=== PATIENT | male | born 1950 | race Two or more races ===

== ENCOUNTER → 2023-12-16 | Outpatient (CLI) | payer MEDICARE, MEDICAID, SELFPAY ==
[2023-12-16 08:30] LABS: Basophils % (Auto) 1 % (0-2.5); Eosinophils # (Auto) 0.1 Thou/mm3 (0.0-0.5); Eosinophils % (Auto) 2 % (0-10); Hematocrit 50.2 % (41.0-53.0); Immature Granulocytes % (Auto) 0 % (0-0); Immature Granulocytes Auto 0.02 Thou/mm3 (0.00-0.00); Lymphocytes # (Auto) 1.5 Thou/mm3 (1.0-4.8); Lymphocytes % (Auto) 26 % (10-50); Mean Corpuscular HGB Conc 29.9 g/dl (31.0-37.0); Mean Corpuscular Volume 84 fL (80-100); Monocytes # (Auto) 0.7 Thou/mm3 (0.0-0.8); Monocytes % (Auto) 12 % (0-12); Neutrophils # (Auto) 3.5 Thou/mm3 (1.8-7.7); Neutrophils % (Auto) 59 % (37-80); Nucleated Red Blood Cell % 0 /100 WBC (0); Platelet Count 234 Thou/mm3 (140-440); RDW Standard Deviation 45.1 fL (35.1-43.9); White Blood Count 5.8 Thou/mm3 (3.8-10.6)
[2023-12-16 08:52] LABS: Alanine Aminotransferase 29 U/L (10-49); Albumin, Serum 5.2 gm/dL (3.4-4.8); Albumin/Globulin Ratio 2.3 (1.2-2.2); Alkaline Phosphatase 115 U/L (46-116); Anion Gap 8 (7-16); Aspartate Amino Transferase 21 U/L (0-34); BUN/Creatinine Ratio 18 Ratio (12-20); Bilirubin,Total 0.5 mg/dL (0.3-1.2); Blood Urea Nitrogen 24 mg/dL (9-23); Calcium 10.5 mg/dL (8.3-10.6); Calcium (Corrected) 10.5 mg/dL (8.5-10.1); Chloride 105 mMol/L (98-107); Creatinine (Component) 1.3 mg/dL (0.6-1.3); Globulin 2.3 gm/dL (2.3-3.5); Glucose 137 mg/dL (74-106); Osmolality,Calculated 283 (275-295); Potassium 4.7 mMol/L (3.4-5.1); Sodium 139 mMol/L (136-145); Total Protein 7.5 gm/dL (5.7-8.2); eGFR 59 See Note
[2023-12-16 08:57] LABS: Folate 13.89 ng/mL (>5.38); Vitamin B12 613 pg/mL (211-911)
[2023-12-24 06:33] LABS: Testosterone,Total* 399 ng/dL (250-1100)
== END | disposition home or self-care (01) ==
LOC: SCTO 06:40
PROVIDERS: Referring Provider Nurse Practitioner Family; Visit Provider Nurse Practitioner Family
DX: D75.1 Secondary polycythemia (principal)
CPT/HCPCS: 36415; 80053; 82607; 82668; 82728; 82746; 83540; 83550; 84403; 85025

== ENCOUNTER 2023-12-17 13:45 | Outpatient (RCR) | payer MEDICARE, MEDICAID, SELFPAY | END 2024-01-11 23:59 | disposition home or self-care (01) | LOC: SCTC 13:45 | PROVIDERS: PCP Family Medicine; Referring Provider Family Medicine; Visit Provider Internal Medicine Hematology & Oncology | DX: D75.1 Secondary polycythemia (principal); Z94.0 Kidney transplant status | CPT/HCPCS: 99195 ==

== ENCOUNTER → 2024-01-06 | Outpatient (CLI) | payer MEDICARE, MEDICAID, SELFPAY ==
[2024-01-06 14:00] LABS: Basophils % (Auto) 1 % (0-2.5); Eosinophils % (Auto) 1 % (0-10); Hematocrit 42.9 % (41.0-53.0); Immature Granulocytes % (Auto) 1 % (0-0); Immature Granulocytes Auto 0.03 Thou/mm3 (0.00-0.00); Lymphocytes # (Auto) 0.9 Thou/mm3 (1.0-4.8); Lymphocytes % (Auto) 15 % (10-50); Mean Corpuscular HGB Conc 30.3 g/dl (31.0-37.0); Mean Corpuscular Hemoglobin 24.1 pg (25.0-35.0); Mean Corpuscular Volume 80 fL (80-100); Monocytes # (Auto) 0.6 Thou/mm3 (0.0-0.8); Monocytes % (Auto) 10 % (0-12); Neutrophils # (Auto) 4.5 Thou/mm3 (1.8-7.7); Neutrophils % (Auto) 74 % (37-80); Nucleated Red Blood Cell % 0 /100 WBC (0); Platelet Count 241 Thou/mm3 (140-440); RDW Standard Deviation 42.9 fL (35.1-43.9); Red Blood Count 5.39 Miln/mm3 (4.50-5.90); White Blood Count 6.1 Thou/mm3 (3.8-10.6)
[2024-01-06 14:14] LABS: Alanine Aminotransferase 26 U/L (10-49); Albumin, Serum 4.6 gm/dL (3.4-4.8); Albumin/Globulin Ratio 2.3 (1.2-2.2); Alkaline Phosphatase 97 U/L (46-116); Anion Gap 10 (7-16); Aspartate Amino Transferase 26 U/L (0-34); BUN/Creatinine Ratio 19 Ratio (12-20); Bilirubin,Total 0.7 mg/dL (0.3-1.2); Blood Urea Nitrogen 25 mg/dL (9-23); Calcium 9.9 mg/dL (8.3-10.6); Calcium (Corrected) 9.9 mg/dL (8.5-10.1); Carbon Dioxide 23.3 mMol/L (20.0-31.0); Chloride 105 mMol/L (98-107); Creatinine (Component) 1.3 mg/dL (0.6-1.3); Glucose 217 mg/dL (74-106); Osmolality,Calculated 287 (275-295); Potassium 4.2 mMol/L (3.4-5.1); Sodium 138 mMol/L (136-145); Total Protein 6.6 gm/dL (5.7-8.2); eGFR 59 See Note
== END | disposition home or self-care (01) ==
LOC: SCTO 12:52
PROVIDERS: PCP Family Medicine; Referring Provider Nurse Practitioner Family; Visit Provider Nurse Practitioner Family
DX: D75.1 Secondary polycythemia (principal)
CPT/HCPCS: 36415; 80053; 85025

== ENCOUNTER → 2024-01-13 | Outpatient (CLI) | payer MEDICARE, MEDICAID, SELFPAY ==
[2024-01-13 07:48] LABS: Collection Type, Urine Clean Catch; Squamous Epithelial Cell,Urine 0 /hpf (0-5)
[2024-01-13 08:28] LABS: Basophils % (Auto) 1 % (0-2.5); Eosinophils # (Auto) 0.2 Thou/mm3 (0.0-0.5); Eosinophils % (Auto) 3 % (0-10); Hemoglobin 13.7 g/dL (13.5-16.0); Immature Granulocytes % (Auto) 1 % (0-0); Immature Granulocytes Auto 0.05 Thou/mm3 (0.00-0.00); Lymphocytes # (Auto) 1.5 Thou/mm3 (1.0-4.8); Lymphocytes % (Auto) 27 % (10-50); Mean Corpuscular HGB Conc 29.1 g/dl (31.0-37.0); Mean Corpuscular Hemoglobin 23.6 pg (25.0-35.0); Mean Corpuscular Volume 81 fL (80-100); Monocytes # (Auto) 0.7 Thou/mm3 (0.0-0.8); Monocytes % (Auto) 13 % (0-12); Neutrophils # (Auto) 3.1 Thou/mm3 (1.8-7.7); Neutrophils % (Auto) 56 % (37-80); Nucleated Red Blood Cell % 0 /100 WBC (0); Platelet Count 248 Thou/mm3 (140-440); RDW Standard Deviation 43.8 fL (35.1-43.9); White Blood Count 5.5 Thou/mm3 (3.8-10.6)
[2024-01-13 08:35] LABS: Bilirubin,Urine Negative (Negative); Blood,Urine Negative (Negative); Clarity,Urine Clear (Clear/Hazy); Color,Urine Lt-Yellow (Lt Yel-Yel); Glucose, Urine 4+ (Negative); Ketones,Urine Negative (Negative); Leukocyte Esterase,Urine Negative (Negative); Nitrite,Urine Negative (Negative); Protein,Urine Trace (Neg - Trace); RBC,Urine 1 /hpf (0-3); Specific Gravity,Urine 1.023 (1.001-1.035); Urobilinogen,Urine Negative mg/dL (0.0-1.0); WBC,Urine < 1 /hpf (0-5)
[2024-01-13 08:51] LABS: Alanine Aminotransferase 19 U/L (10-49); Albumin/Globulin Ratio 2.6 (1.2-2.2); Alkaline Phosphatase 118 U/L (46-116); Anion Gap 11 (7-16); Aspartate Amino Transferase 21 U/L (0-34); BUN/Creatinine Ratio 19 Ratio (12-20); Bilirubin,Direct 0.1 mg/dL (0.0-0.3); Bilirubin,Total 0.5 mg/dL (0.3-1.2); Blood Urea Nitrogen 25 mg/dL (9-23); Calcium 10.1 mg/dL (8.3-10.6); Calcium (Corrected) 10.1 mg/dL (8.5-10.1); Carbon Dioxide 24.3 mMol/L (20.0-31.0); Cardiac Risk Estimate 2.9 RATIO (4.0-6.7); Chloride 104 mMol/L (98-107); Cholesterol 180 mg/dL (132-200); Creatinine (Component) 1.3 mg/dL (0.6-1.3); Globulin 1.9 gm/dL (2.3-3.5); Glucose 140 mg/dL (74-106); HDL Cholesterol 63 mg/dL (40-60); LDL Cholesterol,Calculated 85 mg/dL (0-130); Osmolality,Calculated 283 (275-295); Phosphorous 3.7 mg/dL (2.4-5.1); Potassium 4.8 mMol/L (3.4-5.1); Sodium 139 mMol/L (136-145); Total Protein 6.9 gm/dL (5.7-8.2); Triglycerides 162 mg/dL (30-150); eGFR 59 See Note
[2024-01-13 09:19] LABS: Glucose Estimated Average 212 mg/dL (80-131)
[2024-01-20 06:56] LABS: Tacrolimus,highly sensitive* 7.5 mcg/L (5.0-20.0)
== END | disposition home or self-care (01) ==
LOC: COPL 06:39
PROVIDERS: PCP Nurse Practitioner Family; Referring Provider Nurse Practitioner Family; Visit Provider Internal Medicine Nephrology
DX: E78.5 Hyperlipidemia, unspecified (principal); E11.9 Type 2 diabetes mellitus without complications; Z94.0 Kidney transplant status; D75.1 Secondary polycythemia
CPT/HCPCS: 36415; 80053; 80061; 80197; 81001; 82248; 83036; 84100; 85025

== ENCOUNTER 2024-01-21 15:41 | Outpatient (RCR) | payer MEDICARE, MEDICAID, SELFPAY | END 2024-02-11 23:59 | disposition home or self-care (01) | LOC: SCTC 15:41 | PROVIDERS: PCP Nurse Practitioner Family; Referring Provider Nurse Practitioner Family; Visit Provider Internal Medicine Hematology & Oncology | DX: D75.1 Secondary polycythemia (principal); Z94.0 Kidney transplant status | CPT/HCPCS: 99212; G0463 ==

== ENCOUNTER → 2024-02-14 | Outpatient (CLI) | payer MEDICARE, MEDICAID, SELFPAY ==
[2024-02-14 08:27] LABS: Collection Type, Urine Clean Catch; Squamous Epithelial Cell,Urine 0 /hpf (0-5)
[2024-02-14 08:51] LABS: Basophils % (Auto) 1 % (0-2.5); Eosinophils # (Auto) 0.1 Thou/mm3 (0.0-0.5); Eosinophils % (Auto) 3 % (0-10); Hematocrit 46.6 % (41.0-53.0); Hemoglobin 13.6 g/dL (13.5-16.0); Immature Granulocytes % (Auto) 1 % (0-0); Immature Granulocytes Auto 0.03 Thou/mm3 (0.00-0.00); Lymphocytes # (Auto) 1.6 Thou/mm3 (1.0-4.8); Lymphocytes % (Auto) 27 % (10-50); Mean Corpuscular HGB Conc 29.2 g/dl (31.0-37.0); Mean Corpuscular Hemoglobin 23.2 pg (25.0-35.0); Mean Corpuscular Volume 80 fL (80-100); Monocytes # (Auto) 0.8 Thou/mm3 (0.0-0.8); Monocytes % (Auto) 14 % (0-12); Neutrophils # (Auto) 3.2 Thou/mm3 (1.8-7.7); Neutrophils % (Auto) 55 % (37-80); Nucleated Red Blood Cell % 0 /100 WBC (0); Platelet Count 196 Thou/mm3 (140-440); RDW Standard Deviation 46.9 fL (35.1-43.9); Red Blood Count 5.86 Miln/mm3 (4.50-5.90); White Blood Count 5.7 Thou/mm3 (3.8-10.6)
[2024-02-14 09:03] LABS: Alanine Aminotransferase 20 U/L (10-49); Albumin, Serum 4.7 gm/dL (3.4-4.8); Albumin/Globulin Ratio 2.4 (1.2-2.2); Alkaline Phosphatase 86 U/L (46-116); Anion Gap 9 (7-16); Aspartate Amino Transferase 18 U/L (0-34); BUN/Creatinine Ratio 20 Ratio (12-20); Bilirubin,Total 0.5 mg/dL (0.3-1.2); Blood Urea Nitrogen 24 mg/dL (9-23); Calcium 9.7 mg/dL (8.3-10.6); Calcium (Corrected) 9.7 mg/dL (8.5-10.1); Carbon Dioxide 26.7 mMol/L (20.0-31.0); Chloride 107 mMol/L (98-107); Creatinine (Component) 1.2 mg/dL (0.6-1.3); Glucose 123 mg/dL (74-106); Magnesium 1.7 mg/dL (1.6-2.6); Osmolality,Calculated 289 (275-295); Phosphorous 4.1 mg/dL (2.4-5.1); Potassium 4.2 mMol/L (3.4-5.1); Sodium 143 mMol/L (136-145); Total Protein 6.7 gm/dL (5.7-8.2); eGFR > 60 See Note
[2024-02-14 10:30] LABS: Bilirubin,Urine Negative (Negative); Blood,Urine Negative (Negative); Clarity,Urine Clear (Clear/Hazy); Color,Urine Lt-Yellow (Lt Yel-Yel); Culture Indicated,Urine Not Indicated; Glucose, Urine 4+ (Negative); Ketones,Urine Negative (Negative); Leukocyte Esterase,Urine Negative (Negative); Nitrite,Urine Negative (Negative); Protein,Urine Trace (Neg - Trace); RBC,Urine 1 /hpf (0-3); Specific Gravity,Urine 1.032 (1.001-1.035); Urobilinogen,Urine Negative mg/dL (0.0-1.0); WBC,Urine < 1 /hpf (0-5)
[2024-02-14 10:43] LABS: Creatinine,Random Urine 110 mg/dL (30-125); Protein Total, Random Urine 34 mg/dL (1-14)
[2024-02-18 07:03] LABS: BK Virus DNA,QN PCR,Urine 45948 copies/mL
[2024-02-19 07:08] LABS: BK Virus DNA,QN PCR,Urine 4.66 Log cps/mL
[2024-02-20 06:26] LABS: CMV Antibody (IgM) <30.00 AU/mL; Tacrolimus,highly sensitive* 8.7 mcg/L (5.0-20.0)
== END | disposition home or self-care (01) ==
LOC: COPL 06:41
PROVIDERS: PCP Nurse Practitioner Family; Referring Provider Specialist; Visit Provider Specialist
DX: Z94.0 Kidney transplant status (principal); B25.9 Cytomegaloviral disease, unspecified; E83.42 Hypomagnesemia; E83.39 Other disorders of phosphorus metabolism; R80.9 Proteinuria, unspecified; N39.0 Urinary tract infection, site not specified
CPT/HCPCS: 36415; 80053; 80197; 81001; 82570; 83735; 84100; 84156; 85025; 86644; 86645; 87799

== ENCOUNTER → 2024-03-03 | Outpatient (CLI) | payer MEDICARE, MEDICAID, SELFPAY ==
[2024-03-03 07:48] LABS: Collection Type, Urine Clean Catch; Squamous Epithelial Cell,Urine 0 /hpf (0-5)
[2024-03-03 08:55] LABS: Basophils % (Auto) 1 % (0-2.5); Eosinophils # (Auto) 0.1 Thou/mm3 (0.0-0.5); Eosinophils % (Auto) 1 % (0-10); Hematocrit 45.9 % (41.0-53.0); Hemoglobin 13.9 g/dL (13.5-16.0); Immature Granulocytes % (Auto) 1 % (0-0); Immature Granulocytes Auto 0.07 Thou/mm3 (0.00-0.00); Lymphocytes # (Auto) 1.4 Thou/mm3 (1.0-4.8); Lymphocytes % (Auto) 23 % (10-50); Mean Corpuscular HGB Conc 30.3 g/dl (31.0-37.0); Mean Corpuscular Hemoglobin 23.9 pg (25.0-35.0); Mean Corpuscular Volume 79 fL (80-100); Monocytes # (Auto) 0.8 Thou/mm3 (0.0-0.8); Monocytes % (Auto) 12 % (0-12); Neutrophils # (Auto) 3.9 Thou/mm3 (1.8-7.7); Neutrophils % (Auto) 62 % (37-80); Nucleated Red Blood Cell % 0 /100 WBC (0); Platelet Count 209 Thou/mm3 (140-440); RDW Standard Deviation 48.4 fL (35.1-43.9); Red Blood Count 5.82 Miln/mm3 (4.50-5.90); White Blood Count 6.3 Thou/mm3 (3.8-10.6)
[2024-03-03 08:57] LABS: Glucose Estimated Average 240 mg/dL (80-131)
[2024-03-03 09:00] LABS: Creatinine MALB Rnd Ur 57 mg/dL (30-125); Microalbumin Creat Ratio 44 mg/gCrea (<30); Microalbumin, Random Urine 25 mg/L (0-300)
[2024-03-03 09:15] LABS: Alanine Aminotransferase 18 U/L (10-49); Albumin, Serum 4.8 gm/dL (3.4-4.8); Albumin/Globulin Ratio 2.2 (1.2-2.2); Alkaline Phosphatase 109 U/L (46-116); Anion Gap 10 (7-16); Aspartate Amino Transferase 13 U/L (0-34); BUN/Creatinine Ratio 26 Ratio (12-20); Bilirubin,Total 0.5 mg/dL (0.3-1.2); Blood Urea Nitrogen 36 mg/dL (9-23); Calcium 9.7 mg/dL (8.3-10.6); Calcium (Corrected) 9.7 mg/dL (8.5-10.1); Carbon Dioxide 25.5 mMol/L (20.0-31.0); Chloride 106 mMol/L (98-107); Creatinine (Component) 1.4 mg/dL (0.6-1.3); Globulin 2.2 gm/dL (2.3-3.5); Glucose 204 mg/dL (74-106); Magnesium 1.6 mg/dL (1.6-2.6); Osmolality,Calculated 295 (275-295); Phosphorous 3.8 mg/dL (2.4-5.1); Potassium 4.4 mMol/L (3.4-5.1); Sodium 141 mMol/L (136-145); eGFR 53 See Note
[2024-03-03 09:16] LABS: Bilirubin,Urine Negative (Negative); Blood,Urine Negative (Negative); Clarity,Urine Clear (Clear/Hazy); Color,Urine Colorless (Lt Yel-Yel); Culture Indicated,Urine Not Indicated; Glucose, Urine 4+ (Negative); Ketones,Urine Negative (Negative); Leukocyte Esterase,Urine Negative (Negative); Nitrite,Urine Negative (Negative); Protein,Urine Trace (Neg - Trace); RBC,Urine 5 /hpf (0-3); Specific Gravity,Urine 1.031 (1.001-1.035); Urobilinogen,Urine Negative mg/dL (0.0-1.0); WBC,Urine < 1 /hpf (0-5)
[2024-03-05 23:34] LABS: BK Virus DNA,QN PCR,Urine 78362 copies/mL
[2024-03-06 07:00] LABS: BK Virus DNA,QN PCR,Urine 4.89 Log cps/mL
[2024-03-08 19:51] LABS: BKQL Source PLASMA; CMV DNA, Qn Real Time PCR NOT DETECTED; CMV Specimen Source NOT GIVEN
[2024-03-09 06:52] LABS: BK Virus DNA, Qnt PCR <2.70 DETECTED Log cps/mL; BK Virus DNA, Qnt PCR <500 DETECTED copies/mL; CMV DNA, Qn PCR NOT DETECTED Log IU/mL; Tacrolimus,highly sensitive* 5.5 mcg/L (5.0-20.0)
== END | disposition home or self-care (01) ==
LOC: COPL 06:48
PROVIDERS: PCP Internal Medicine Nephrology; Referring Provider Specialist; Visit Provider Specialist
DX: Z94.0 Kidney transplant status (principal); E83.42 Hypomagnesemia; B25.9 Cytomegaloviral disease, unspecified; E83.39 Other disorders of phosphorus metabolism; R80.9 Proteinuria, unspecified; N39.0 Urinary tract infection, site not specified; E11.9 Type 2 diabetes mellitus without complications
CPT/HCPCS: 36415; 80053; 80197; 81001; 82043; 82570; 83036; 83735; 84100; 85025; 87497; 87799

== ENCOUNTER → 2024-03-25 | Outpatient (CLI) | payer MEDICARE, MEDICAID, SELFPAY ==
[2024-03-25 15:47] LABS: Basophils % (Auto) 0 % (0-2.5); Eosinophils % (Auto) 0 % (0-10); Hematocrit 44.5 % (41.0-53.0); Hemoglobin 13.4 g/dL (13.5-16.0); Immature Granulocytes % (Auto) 1 % (0-0); Immature Granulocytes Auto 0.04 Thou/mm3 (0.00-0.00); Lymphocytes # (Auto) 0.9 Thou/mm3 (1.0-4.8); Lymphocytes % (Auto) 10 % (10-50); Mean Corpuscular HGB Conc 30.1 g/dl (31.0-37.0); Mean Corpuscular Hemoglobin 23.8 pg (25.0-35.0); Mean Corpuscular Volume 79 fL (80-100); Monocytes # (Auto) 0.5 Thou/mm3 (0.0-0.8); Monocytes % (Auto) 7 % (0-12); Neutrophils # (Auto) 6.7 Thou/mm3 (1.8-7.7); Neutrophils % (Auto) 82 % (37-80); Nucleated Red Blood Cell % 0 /100 WBC (0); Platelet Count 176 Thou/mm3 (140-440); RDW Standard Deviation 49.6 fL (35.1-43.9); Red Blood Count 5.64 Miln/mm3 (4.50-5.90); White Blood Count 8.2 Thou/mm3 (3.8-10.6)
[2024-03-25 16:02] LABS: Alanine Aminotransferase 25 U/L (10-49); Albumin, Serum 4.4 gm/dL (3.4-4.8); Albumin/Globulin Ratio 2.1 (1.2-2.2); Alkaline Phosphatase 99 U/L (46-116); Anion Gap 7 (7-16); Aspartate Amino Transferase 19 U/L (0-34); BUN/Creatinine Ratio 22 Ratio (12-20); Bilirubin,Total 0.5 mg/dL (0.3-1.2); Blood Urea Nitrogen 28 mg/dL (9-23); Carbon Dioxide 25.6 mMol/L (20.0-31.0); Chloride 104 mMol/L (98-107); Creatinine (Component) 1.3 mg/dL (0.6-1.3); Globulin 2.1 gm/dL (2.3-3.5); Glucose 399 mg/dL (74-106); Osmolality,Calculated 296 (275-295); Potassium 4.7 mMol/L (3.4-5.1); Sodium 137 mMol/L (136-145); Total Protein 6.5 gm/dL (5.7-8.2); eGFR 58 See Note
== END | disposition home or self-care (01) ==
LOC: SCTO 14:05
PROVIDERS: PCP Nurse Practitioner Family; Referring Provider Nurse Practitioner Family; Visit Provider Nurse Practitioner Family
DX: D75.1 Secondary polycythemia (principal)
CPT/HCPCS: 36415; 80053; 85025

== ENCOUNTER → 2024-05-05 | Outpatient (CLI) | payer MEDICARE, MEDICAID, SELFPAY ==
[2024-05-05 08:24] LABS: Collection Type, Urine Clean Catch
[2024-05-05 08:48] LABS: Basophils % (Auto) 1 % (0-2.5); Eosinophils # (Auto) 0.1 Thou/mm3 (0.0-0.5); Eosinophils % (Auto) 2 % (0-10); Hematocrit 45.7 % (41.0-53.0); Hemoglobin 13.8 g/dL (13.5-16.0); Immature Granulocytes % (Auto) 1 % (0-0); Immature Granulocytes Auto 0.03 Thou/mm3 (0.00-0.00); Lymphocytes # (Auto) 1.4 Thou/mm3 (1.0-4.8); Lymphocytes % (Auto) 25 % (10-50); Mean Corpuscular HGB Conc 30.2 g/dl (31.0-37.0); Mean Corpuscular Hemoglobin 23.9 pg (25.0-35.0); Mean Corpuscular Volume 79 fL (80-100); Monocytes # (Auto) 0.8 Thou/mm3 (0.0-0.8); Monocytes % (Auto) 14 % (0-12); Neutrophils # (Auto) 3.1 Thou/mm3 (1.8-7.7); Neutrophils % (Auto) 57 % (37-80); Nucleated Red Blood Cell % 0 /100 WBC (0); Platelet Count 169 Thou/mm3 (140-440); Red Blood Count 5.78 Miln/mm3 (4.50-5.90); White Blood Count 5.5 Thou/mm3 (3.8-10.6)
[2024-05-05 09:00] LABS: Bilirubin,Urine Negative (Negative); Blood,Urine Negative (Negative); Clarity,Urine Clear (Clear/Hazy); Color,Urine Colorless (Lt Yel-Yel); Culture Indicated,Urine Not Indicated; Glucose, Urine 4+ (Negative); Ketones,Urine Negative (Negative); Leukocyte Esterase,Urine Negative (Negative); Nitrite,Urine Negative (Negative); PH,Urine 6.5 (5.0-7.0); Protein,Urine Trace (Neg - Trace); RBC,Urine < 1 /hpf (0-3); Specific Gravity,Urine 1.013 (1.001-1.035); Squamous Epithelial Cell,Urine < 1 /hpf (0-5); Urobilinogen,Urine Negative mg/dL (0.0-1.0); WBC,Urine < 1 /hpf (0-5)
[2024-05-05 09:07] LABS: Albumin, Serum 4.6 gm/dL (3.4-4.8); Anion Gap 9 (7-16); BUN/Creatinine Ratio 23 Ratio (12-20); Blood Urea Nitrogen 30 mg/dL (9-23); Calcium 9.5 mg/dL (8.3-10.6); Calcium (Corrected) 9.5 mg/dL (8.5-10.1); Carbon Dioxide 24.7 mMol/L (20.0-31.0); Chloride 108 mMol/L (98-107); Creatinine (Component) 1.3 mg/dL (0.6-1.3); Glucose 107 mg/dL (74-106); Osmolality,Calculated 289 (275-295); Phosphorous 3.1 mg/dL (2.4-5.1); Potassium 4.3 mMol/L (3.4-5.1); Sodium 142 mMol/L (136-145); eGFR 58 See Note
[2024-05-05 09:09] LABS: Sperm,Urine Present
[2024-05-13 06:40] LABS: Tacrolimus,highly sensitive* 3.8 mcg/L (5.0-20.0)
== END | disposition home or self-care (01) ==
PROVIDERS: PCP Nurse Practitioner Family; Referring Provider Internal Medicine Nephrology; Visit Provider Internal Medicine Nephrology
DX: I10 Essential (primary) hypertension (principal); E11.9 Type 2 diabetes mellitus without complications; Z94.0 Kidney transplant status
CPT/HCPCS: 36415; 80069; 80197; 81001; 85025

== ENCOUNTER → 2024-05-21 | Outpatient (CLI) | payer MEDICARE, MEDICAID, SELFPAY ==
[2024-05-21 11:55] LABS: Misc Send Out* See Sep Rpt
[2024-05-21 12:19] LABS: Basophils % (Auto) 1 % (0-2.5); Eosinophils # (Auto) 0.1 Thou/mm3 (0.0-0.5); Eosinophils % (Auto) 1 % (0-10); Hematocrit 47.8 % (41.0-53.0); Hemoglobin 14.3 g/dL (13.5-16.0); Immature Granulocytes % (Auto) 2 % (0-0); Immature Granulocytes Auto 0.12 Thou/mm3 (0.00-0.00); Lymphocytes # (Auto) 1.3 Thou/mm3 (1.0-4.8); Lymphocytes % (Auto) 18 % (10-50); Mean Corpuscular HGB Conc 29.9 g/dl (31.0-37.0); Mean Corpuscular Hemoglobin 24.1 pg (25.0-35.0); Mean Corpuscular Volume 81 fL (80-100); Monocytes # (Auto) 0.6 Thou/mm3 (0.0-0.8); Monocytes % (Auto) 8 % (0-12); Neutrophils % (Auto) 71 % (37-80); Nucleated Red Blood Cell % 0 /100 WBC (0); Platelet Count 193 Thou/mm3 (140-440); Red Blood Count 5.93 Miln/mm3 (4.50-5.90)
[2024-05-21 12:47] LABS: Alanine Aminotransferase 38 U/L (10-49); Albumin, Serum 4.7 gm/dL (3.4-4.8); Albumin/Globulin Ratio 2.1 (1.2-2.2); Alkaline Phosphatase 86 U/L (46-116); Anion Gap 8 (7-16); Aspartate Amino Transferase 23 U/L (0-34); BUN/Creatinine Ratio 23 Ratio (12-20); Bilirubin,Total 0.6 mg/dL (0.3-1.2); Blood Urea Nitrogen 30 mg/dL (9-23); Calcium 9.9 mg/dL (8.3-10.6); Calcium (Corrected) 9.9 mg/dL (8.5-10.1); Carbon Dioxide 24.5 mMol/L (20.0-31.0); Chloride 110 mMol/L (98-107); Creatinine (Component) 1.3 mg/dL (0.6-1.3); Globulin 2.2 gm/dL (2.3-3.5); Glucose 202 mg/dL (74-106); Osmolality,Calculated 295 (275-295); Potassium 5.2 mMol/L (3.4-5.1); Sodium 142 mMol/L (136-145); Total Protein 6.9 gm/dL (5.7-8.2); eGFR 58 See Note
[2024-05-26 06:35] LABS: Erythropoietin (EPO)* 11.7 mIU/mL (2.6-18.5); Testosterone,Total* 446 ng/dL (250-1100)
== END | disposition home or self-care (01) ==
LOC: SCTO 11:37
PROVIDERS: PCP Nurse Practitioner Family; Referring Provider Nurse Practitioner Family; Visit Provider Nurse Practitioner Family
DX: D75.1 Secondary polycythemia (principal)
CPT/HCPCS: 36415; 80053; 82668; 84403; 85025

== ENCOUNTER 2024-06-02 11:13 | Outpatient (RCR) | payer MEDICARE, MEDICAID, SELFPAY | END 2024-06-10 23:59 | disposition home or self-care (01) | LOC: SCTC 11:13 | PROVIDERS: PCP Nurse Practitioner Family; Referring Provider Nurse Practitioner Family; Visit Provider Nurse Practitioner Family | DX: D75.1 Secondary polycythemia (principal) | CPT/HCPCS: 99212; G0463 ==

== ENCOUNTER → 2024-07-20 | Outpatient (CLI) | payer MEDICARE, MEDICAID, SELFPAY ==
[2024-07-20 07:59] LABS: Collection Type, Urine Clean Catch; WBC,Urine 0 /hpf (0-5)
[2024-07-20 08:34] LABS: Alanine Aminotransferase 18 U/L (10-49); Albumin, Serum 4.6 gm/dL (3.4-4.8); Alkaline Phosphatase 87 U/L (46-116); Anion Gap 13 (7-16); BUN/Creatinine Ratio 15 Ratio (12-20); Bilirubin,Direct 0.2 mg/dL (0.0-0.3); Bilirubin,Total 0.5 mg/dL (0.3-1.2); Blood Urea Nitrogen 18 mg/dL (9-23); Calcium 9.2 mg/dL (8.3-10.6); Carbon Dioxide 25.6 mMol/L (20.0-31.0); Cardiac Risk Estimate 2.9 RATIO (4.0-6.7); Chloride 106 mMol/L (98-107); Cholesterol 163 mg/dL (132-200); Creatinine (Component) 1.2 mg/dL (0.6-1.3); Glucose 134 mg/dL (74-106); HDL Cholesterol 57 mg/dL (40-60); LDL Cholesterol,Calculated 81 mg/dL (0-130); Osmolality,Calculated 292 (275-295); Potassium 4.1 mMol/L (3.4-5.1); Sodium 145 mMol/L (136-145); Total Protein 6.6 gm/dL (5.7-8.2); Triglycerides 126 mg/dL (30-150); eGFR > 60 See Note
[2024-07-20 08:38] LABS: Basophils % (Auto) 1 % (0-2.5); Eosinophils # (Auto) 0.1 Thou/mm3 (0.0-0.5); Eosinophils % (Auto) 1 % (0-10); Hematocrit 45.9 % (41.0-53.0); Hemoglobin 14.5 g/dL (13.5-16.0); Immature Granulocytes % (Auto) 1 % (0-0); Immature Granulocytes Auto 0.09 Thou/mm3 (0.00-0.00); Lymphocytes # (Auto) 1.4 Thou/mm3 (1.0-4.8); Lymphocytes % (Auto) 23 % (10-50); Mean Corpuscular HGB Conc 31.6 g/dl (31.0-37.0); Mean Corpuscular Hemoglobin 25.3 pg (25.0-35.0); Mean Corpuscular Volume 80 fL (80-100); Monocytes # (Auto) 0.8 Thou/mm3 (0.0-0.8); Monocytes % (Auto) 12 % (0-12); Neutrophils # (Auto) 3.9 Thou/mm3 (1.8-7.7); Neutrophils % (Auto) 62 % (37-80); Nucleated Red Blood Cell % 0 /100 WBC (0); Platelet Count 184 Thou/mm3 (140-440); RDW Standard Deviation 44.2 fL (35.1-43.9); Red Blood Count 5.72 Miln/mm3 (4.50-5.90); White Blood Count 6.3 Thou/mm3 (3.8-10.6)
[2024-07-20 08:55] LABS: Glucose Estimated Average 269 mg/dL (80-131)
[2024-07-20 09:03] LABS: Bilirubin,Urine Negative (Negative); Blood,Urine Negative (Negative); Clarity,Urine Clear (Clear/Hazy); Color,Urine Colorless (Lt Yel-Yel); Glucose, Urine 4+ (Negative); Ketones,Urine Negative (Negative); Leukocyte Esterase,Urine Negative (Negative); Nitrite,Urine Negative (Negative); Protein,Urine Trace (Neg - Trace); RBC,Urine 6 /hpf (0-3); Squamous Epithelial Cell,Urine < 1 /hpf (0-5); Urobilinogen,Urine Negative mg/dL (0.0-1.0)
[2024-07-24 06:58] LABS: Tacrolimus,highly sensitive* 8.2 mcg/L (5.0-20.0)
== END | disposition home or self-care (01) ==
LOC: COPL 06:39
PROVIDERS: PCP Nurse Practitioner Family; Referring Provider Internal Medicine Nephrology; Visit Provider Internal Medicine Nephrology
DX: Z94.0 Kidney transplant status (principal); E11.22 Type 2 diabetes mellitus with diabetic chronic kidney disease; I12.9 Hypertensive chronic kidney disease with stage 1 through stage 4 chronic kidney disease, or unspecified chronic kidney disease; N18.9 Chronic kidney disease, unspecified; E78.00 Pure hypercholesterolemia, unspecified; K76.9 Liver disease, unspecified
CPT/HCPCS: 36415; 80048; 80061; 80076; 80197; 81001; 83036; 84100; 85025

== ENCOUNTER 2024-08-23 14:25 | Inpatient (IN) | payer MEDICARE, MEDICAID, SELFPAY ==
[2024-08-23] VITALS (7 sets, daily range): BP systolic 147–171; BP diastolic 37–70; PULSE 58–63; RESP 16–21; TEMP 36.3–36.8; O2SAT 92–97; BMI 27.0; BMI 26.2; BMI 25.7
--- NOTE | 2024-08-23 14:27 | PD.EDNEURO ---
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 State coworkers on scene noted at around 13:30 hours, the patient became altered. State on their arrival patient initially was AOx1 and improved to AOx2 en route. Prehospital BS 243. While in the ED, patient complains of headache, left arm numbness, and nausea. At 15:00 I obtained further history from the patient. States he he was talking to family outside when he developed right facial numbness and left arm numbness. Described feeling his left arm wasn't mine . Accompanied by headache, blurred vision, and nausea. Reportedly since the brain tumor resection in 2005, he has recurrent headaches and forgetfulness. States the left arm numbness is new today. Related Data Home Medications ?Medication ?Instructions ?Recorded ?Confirmed aspirin 81 mg chewable tablet 81 mg PO QDAY 01/28/19 08/29/23 clopidogrel 75 mg tablet (Plavix) 75 mg PO QDAY 01/28/19 07/31/22 mycophenolate sodium 180 mg 540 mg PO Q12H 01/28/19 08/29/23 tablet,delayed release (Myfortic) tacrolimus 0.5 mg capsule, 0.5 mg PO BID 07/13/20 08/29/23 immediate-release tacrolimus 1 mg capsule, 3 mg PO BID 07/14/20 08/29/23 immediate-release prednisone 1 mg tablet 5 mg PO QDAY 08/01/22 08/29/23 atorvastatin 40 mg tablet 40 mg PO HS 08/03/22 08/29/23 dapagliflozin propanediol 10 mg 10 mg PO QAM 08/03/22 08/23/24 tablet (Farxiga) insulin glargine 100 15 unit subcut BID 08/03/22 08/03/22 unit-lixisenatide 33 mcg/mL subcutaneous pen (Soliqua 100/33) tamsulosin 0.4 mg capsule (Flomax) 0.4 mg PO HS 08/03/22 08/03/22 tramadol 50 mg tablet 50 mg PO Q6H PRN Pain 08/03/22 08/03/22 valsartan 40 mg tablet (Diovan) 40 mg PO DAILY 08/03/22 08/03/22 atorvastatin 20 mg tablet mg 08/29/23 dapagliflozin propanediol 10 mg 10 mg PO QAM 08/29/23 08/23/24 tablet ([facility]) dapagliflozin propanediol 10 mg mg 08/29/23 tablet ([facility]) glipizide 10 mg tablet mg 08/29/23 08/29/23 vitamin B complex-vitamin C-folic tab 08/29/23 acid 0.8 mg tablet (Jailyn-Rayshawn) vitamin B complex-vitamin C-folic tab 08/29/23 acid 0.8 mg tablet (Jailyn-Rayshawn) amlodipine 10 mg tablet 10 mg PO QDAY 08/23/24 08/23/24 propranolol 10 mg tablet 20 mg PO BID 08/23/24 08/23/24 Previous Rx's ?Medication ?Instructions ?Recorded doxycycline hyclate 100 mg capsule 100 mg PO BID #24 caps 08/04/22 hydrocodone 5 mg-acetaminophen 325 1 tab PO Q8H PRN pain #12 tabs 08/04/22 mg tablet Allergies Allergy/AdvReac Type Severity Reaction Status Date / Time No Known Allergies Allergy Verified 08/23/24 15:56 Review of Systems Review of Systems Systems Reviewed: All systems reviewed, normal except as documented Past Medical History Past Medical History NEUROLOGIC: Positive Neurological Disorders, Migraine and Head Trauma; Negative Seizures CARDIAC: Positive Cardiac Disorders, Hypercholesterolemia and Hypertension; Negative Congestive Heart Failure, Edema, Cellulitis or Varicose Veins RESPIRATORY: Negative Chronic Obstructive Pulmonary Disease (COPD) GASTROINTESTINAL: Negative Gastrointestinal Disorders or Hepatitis GENITOURINARY: Positive Genitourinary Disorders, Renal Disease and Dialysis MUSCULOSKELETAL: Positive Musculoskeletal Disorders and Arthritis ENT: Positive Head Trauma ENDOCRINE: Positive Endocrine Disorders and Diabetes Mellitus Type 2; Negative Diabetes Mellitus Type 1 HEMATOLOGIC: Negative Blood Disorders OTHER HISTORY: Positive Anesthesia Reactions (had shortness of breath after surgery), Organ Transplant and Chicken Pox; Negative Hospitalization, Autoimmune Disease, Shingles, Falls, Blood Transfusions, Blood Transfusion Reaction, Measles, Mumps, Clostridium Difficile or Cancer Family History FAMILY HISTORY: Positive Family Cardiac Disorders, Family Cancer and Family Surgery; Negative Family Psychiatric Problems, Family Respiratory Disorders, Family Gastrointestinal Problems or Family Anesthesia Reaction Surgical History SURGICAL: Positive Cardiac Surgery, Coronary Stent and Organ Transplant; Negative Pacemaker, Endocrine Surgery, Ear Surgery, Abdominal Surgery, Nephrectomy, Joint Replacement or Mastectomy Social History SMOKING STATUS: Never smoker ED Exam Narrative Physical exam: GENERAL APPEARANCE: Somewhat somnolent, arousable to voice, confused, oriented to self HEENT: Normocephalic, atraumatic; pupils equal, round, reactive to light; EOMI; mucous membranes pink, moist; oropharynx clear NECK: Supple LUNGS: CTABL; no wheezes, no rales, no rhonchi HEART: Regular rate, regular rhythm; normal S1, S2; no murmurs ABDOMEN: non distended; normal BS; soft, no tenderness, no guarding, no rebound; no masses, no organomegaly, no hernia BACK: no CVA tenderness EXTREMITIES: atraumatic; no edema NEUROLOGIC: Somewhat somnolent, arousable to voice, confused, oriented to self, sensory deficits to the left upper extremity, left side neglect PSYCHIATRIC: appropriate mood and affect SKIN: warm, dry, normal color; no rashes Repeat exam @ 15:00 hours. GENERAL APPEARANCE: alert and oriented x 4, well-developed, well-nourished, no acute distress HEENT: Normocephalic, atraumatic; pupils equal, round, reactive to light; EOMI; mucous membranes pink, moist; oropharynx clear NECK: Supple LUNGS: CTABL; no wheezes, no rales, no rhonchi HEART: Regular rate, regular rhythm; normal S1, S2; no murmurs ABDOMEN: non distended; normal BS; soft, no tenderness, no guarding, no rebound; no masses, no organomegaly, no hernia BACK: no CVA tenderness EXTREMITIES: atraumatic; no edema NEUROLOGIC: awake; alert and oriented x4; cranial nerves II-XII grossly intact; no focal sensory or motor deficits, no neglect PSYCHIATRIC: appropriate mood and affect SKIN: warm, dry, normal color; no rashes General Limitations: Present no limitations Course Course Course Narrative: 1423: Patient evaluated in ED ambulance bay, stroke alert activated. Quality Measures Suspected type of Stroke: Non Acute Last known well (date): 08/23/24 Last known well (time): 06:00 Tenecteplase given: Reason(s) TPA not given: Outside the time window not given stroke Orders Category Date Time Status Bedside Blood Glucose NOW Care 08/23/24 14:28 Active Advisor [facility] Co Founder NOW Care 08/23/24 14:28 Active Continuous Pulse Oximetry NOW Care 08/23/24 14:28 Completed EKG (ED ONLY) *Do not use* NOW Care 08/23/24 14:28 Completed In and Out Catheter NEEDED Care 08/23/24 14:28 Active Insert IV NOW Care 08/23/24 14:28 Active NIH Stroke Scale now Care 08/23/24 14:28 Active NPO NOW Care 08/23/24 14:28 Active Neuro Check Q15MIN Care 08/23/24 14:28 Active Nurse Swallow Screen x1 Care 08/23/24 14:28 Active Consult to Neurology / Tele-Neurology Routine Cons 08/23/24 14:[address] angio stroke protocol Stat Exams 08/23/24 14:[address] stroke protocol Stat Exams 08/23/24 14:28 Completed EKG (ED Only) Stat Exams 08/23/24 14:28 Draft Alcohol, Blood Medical Stat Lab 08/23/24 14:39 Completed B-Type Natriuretic Peptide Stat Lab 08/23/24 14:39 Completed CBC Stat Lab 08/23/24 14:39 Completed CK [Creatine Kinase] Stat Lab 08/23/24 14:39 Completed Comprehensive Metabolic Panel Stat Lab 08/23/24 14:39 Completed Drug Screen,Urine Stat Lab 08/23/24 15:30 Completed Lactate (Lactic Acid) Stat Lab 08/23/24 14:39 Completed Magnesium Stat Lab 08/23/24 14:39 Completed Partial Thromboplastin Time Stat Lab 08/23/24 14:39 Completed Prothrombin Time with INR Stat Lab 08/23/24 14:39 Completed Troponin I Stat Lab 08/23/24 14:39 Completed Urinalysis Stat Lab 08/23/24 15:30 Received VBG [Venous Blood Gas] Stat Lab 08/23/24 14:39 Completed Aspirin [Ecotrin] Med 08/23/24 14:59 Discontinued 81 mg PO X1 ONE Magnesium Sulfate 2 GM Ivpb [Magnesium Sulfate Ivpb] Med 08/23/24 15:57 Active 2 gm in 50 ml IV X1 Sodium Chloride 0.9% 1000 ml [Ns] 1,000 ml Med 08/23/24 14:28 Discontinued IV 999 mls/hr Sodium Chloride 0.9% 1000 ml [Ns] 1,000 ml Med 08/23/24 14:29 Discontinued IV 999 mls/hr Oxygen Delivery NOW RT 08/23/24 14:28 Active Vital Signs Vital signs: Vital Signs Pulse Rate 63 08/23/24 14:33 Pulse Oximetry (%) 92 L 08/23/24 14:33 Neuro Symptoms / Deficit MDM Narrative MDM Narrative:: Pam Hernandez am scribing for and in the presence of Dr. Cook. 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 ) Lab and/or radiology exams considered but not ordered:: None Interpretation Summary: Ordering Physician: Froilan Cook MD Date of Service: 08/23/24 Procedure(s): CT stroke protocol Accession Number(s): [id number] cc: Scar Cade MD; Froilan Cook MD~ Examination: CT brain head without contrast. 2-D sagittal coronal reconstructions Date and time of exam:August 23, 2024, 1437 hrs. Indications: Stroke alert, onset altered mental status focal neurologic deficit today. CTDI: vol (mGy):50.7 DLP: (mGycm):1062 Technique: Multiple CT axial sections of the brain have been obtained, 5 mm slice thickness. Contrast has not been administered. 2-D sagittal, coronal reconstructions have been obtained Low dose protocols were performed. One or more of the following dose reduction techniques were used; automated exposure control, adjustment of the mA and/or KV according to patient size, use of iterative reconstruction technique. Findings: No significant ventricular enlargement. Stable encephalomalacia right frontal lobe with adjacent craniotomy defect Intra-axial or extra-axial hemorrhage density is not seen. No mass effect or midline shift Basal cisterns are not remarkable. Fourth ventricle is midline. Cranial vault intact. Impression: Negative for acute hemorrhage, mass effect or midline shift Dictated By: Scar Cade MD Signed By: <Electronically signed by Scar Cade MD in OV> 08/23/24 1443 Ordering Physician: Froilan Cook MD Date of Service: 08/23/24 Procedure(s): CT angio stroke protocol Accession Number(s): [id number] cc: Scar Cade MD; Froilan Cook MD~ Examination: CTA carotids with intravenous contrast CTA brain, head with intravenous contrast. 2-D sagittal, coronal reconstructions. 3-D reconstructions. Exam date and time: August 23, 2024, 1449 hrs. Indications: Stroke alert, onset focal neurologic deficit today, altered mental status, headache CTDI: vol (mGy) 38.4. DLP: (mGycm) 493. Technique: Multiple CTA axial brain, head carotid images post intravenous contrast injection 75 cc, [id number]. 2-D sagittal, coronal reconstructions. 3-D reconstructions, 3-D post processing including vascular maximum intensity projection images. Low dose protocols were performed. One or more of the following dose reduction techniques were used; automated exposure control, adjustment of the mA and/or KV according to patient size, use of iterative reconstruction technique. Findings: No significant common carotid carotid bifurcation or internal carotid artery stenoses Dominant right vertebral artery in the neck, no critical vertebral artery stenoses Intracranial vertebral arteries basilar artery and posterior cerebral branches fill with no large vessel occlusions Moderately heavy calcification of the juxtasellar portions of the internal carotid arteries with no critical stenoses M1 segments middle cerebral arteries middle cerebral artery trifurcation vessels fill with no large vessel occlusions Anterior cerebral arteries fill with no large vessel occlusions. Impression: No significant neck arterial stenoses No cerebral large vessel arterial occlusions or thrombus Dictated By: Scar Cade MD Signed By: <Electronically signed by Scar Cade MD in OV> 08/23/24 1505 Medications / Prescriptions Medications or Prescriptions considered but not ordered:: None Medication administrations:: Medication Administration History Magnesium Sulfate (Magnesium Sulfate Ivpb) 2 gm in 50 mls @ 25 mls/hr IV X1 ONE Stop: 08/23/24 17:56 Last Admin: 08/23/24 16:18 Dose: 25 mls/hr Documented By: MM Discontinued Medications Aspirin (Aspirin Ec 81 Mg Tabec) 81 mg PO X1 ONE Stop: 08/23/24 15:00 Last Admin: 08/23/24 16:09 Dose: 81 mg Documented By: MM Sodium Chloride (Ns) 1,000 mls @ 999 mls/hr IV .Q1H1M ONE Stop: 08/23/24 15:28 Last Admin: 08/23/24 16:11 Dose: 999 mls/hr Documented By: MM Sodium Chloride (Ns) 1,000 mls @ 999 mls/hr IV .Q1H1M ONE Stop: 08/23/24 15:29 Last Admin: 08/23/24 16:18 Dose: 999 mls/hr Documented By: MM See above Consultations Consultation(s) initiated? (list below): Yes Consultation #1 (Physician, Specialty, Details): I spoke with jackson Garcia. Reports patient is not a TNK candidate. Time: 15:11 Diagnosis Neuro Differential Diagnosis: subarachnoid hemorrhage, cerebrovascular accident, transient cerebral ischemia and other (heat stroke ) Most likely diagnosis given after review of the tests above:: CVA Admission Indicated Admission indicated?: indicated Admission Request Was there a request for admission?: Yes Admission Attestation Admission request attestation: Discussed case with [] from Hospitalist service regarding admission. Discussed patients ED course, exam findings, labs, and radiology results. The Hospitalist [agrees,declines] to accept the patient for admission. Disposition Plan Disposition Plan: Admit Critical Care Time Critical Care Time Critical Care Time: Yes Total Critical Care Time (min.): 45 Attestation: The high probability of sudden, clinically significant deterioration in the patient's condition required the highest level of my preparedness to intervene urgently. The services I provided to this patient were to treat and/or prevent clinically significant deterioration. Services included the following: chart data review, reviewing nursing notes and/or old charts, documentation time, system consultant collaboration regarding findings and treatment options, medication orders and management, direct patient care, vital sign assessments and ordering, interpreting and reviewing diagnostic studies and lab tests. Aggregate critical care time includes only time during which I was engaged in work directly related to the patient's care, as described above, whether at bedside or elsewhere in the Emergency Department. It did not include time spent performing other reported procedures or the services of residents, students, nurses or physician assistants. Discharge Plan Plan Patient Disposition: Admit Acute Care w/in Hospital Prescriptions/Referrals Prescriptions/Med Rec: No Action clopidogrel [Plavix] 75 mg Tablet 75 mg PO QDAY aspirin 81 mg Tablet,Chewable 81 mg PO QDAY mycophenolate sodium [Myfortic] 180 mg Tablet,Delayed Release (Dr/Ec) 540 mg PO Q12H Rx Instructions: 3 pills in am, 3 pills in pm tacrolimus 0.5 mg Capsule 0.5 mg PO BID tacrolimus 1 mg Capsule 3 mg PO BID Rx Instructions: 3 pills in am, 3pills pm prednisone 1 mg Tablet 5 mg PO QDAY atorvastatin 40 mg Tablet 40 mg PO HS valsartan [Diovan] 40 mg Tablet 40 mg PO DAILY dapagliflozin propanediol [Farxiga] 10 mg Tablet 10 mg PO QAM Soliqua 100/33 100 unit-33 mcg/mL Insulin Pen 15 unit SUBCUT BID tamsulosin [Flomax] 0.4 mg Capsule 0.4 mg PO HS tramadol 50 mg Tablet 50 mg PO Q6H PRN (Reason: Pain) doxycycline hyclate 100 mg capsule 100 mg PO BID Qty: 24 0RF hydrocodone-acetaminophen 5-325 mg tablet 1 tab PO Q8H MDD 3 tabs PRN (Reason: pain) Qty: 12 0RF atorvastatin 20 mg tablet glipizide 10 mg Tablet amlodipine 5 mg Tablet 5 mg PO DAILY Jailyn-Rayshawn 0.8 mg Tablet Jailyn-Rayshawn 0.8 mg Tablet dapagliflozin propanediol [Farxiga] 10 mg Tablet 10 mg PO QAM dapagliflozin propanediol [Farxiga] 10 mg Tablet Problem List Clinical Impression: CVA (cerebral vascular accident) Patient/Caregiver Discharge Instructions Print Language: Dominican Stand Alone Forms: Jaida Award Info., Patient Portal Info Letter
--- NOTE | 2024-08-23 14:28 | EKG_ITS ---
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
--- NOTE | 2024-08-23 14:33 | PC.NURSE ---
pt bib by pb at 1425. Dr Cook saw patient and stated to be tested for possible stroke. Pt was altered and was transferred to CT with RN. Pt able to comprehend to name but not place or time.
--- NOTE | 2024-08-23 14:38 | PC.NURSE ---
Tele neuro MD on monitor talking to pt.
[2024-08-23 14:50] LABS: Base Excess, Venous -2 (-3-3); Basophils # (Auto) 0.0 Thou/mm3 (0.0-0.2); Basophils % (Auto) 0 % (0-2.5); Eosinophils # (Auto) 0.1 Thou/mm3 (0.0-0.5); Eosinophils % (Auto) 1 % (0-10); Hematocrit 42.9 % (41.0-53.0); Hemoglobin 13.6 g/dL (13.5-16.0); Immature Granulocytes Auto 0.06 Thou/mm3 (0.00-0.00); Lactate (Lactic Acid) 1.8 mMol/L (0.4-2.0); Lymphocytes # (Auto) 1.0 Thou/mm3 (1.0-4.8); Lymphocytes % (Auto) 12 % (10-50); Mean Corpuscular HGB Conc 31.7 g/dl (31.0-37.0); Mean Corpuscular Hemoglobin 25.1 pg (25.0-35.0); Mean Corpuscular Volume 79 fL (80-100); Monocytes # (Auto) 0.6 Thou/mm3 (0.0-0.8); Monocytes % (Auto) 7 % (0-12); Neutrophils # (Auto) 6.1 Thou/mm3 (1.8-7.7); Neutrophils % (Auto) 78 % (37-80); Nucleated Red Blood Cell # 0.00 Thou/mm3 (0.00-0.00); Nucleated Red Blood Cell % 0 /100 WBC (0); O2 Saturation, Venous 79 % (96-97); PCO2, Venous 39 mmHg (36-56); PO2, Venous 44 mmHg (15-58); Platelet Count 152 Thou/mm3 (140-440); RDW Standard Deviation 44.2 fL (35.1-43.9); Red Blood Count 5.41 Miln/mm3 (4.50-5.90); White Blood Count 7.8 Thou/mm3 (3.8-10.6); pH, Venous 7.38 (7.33-7.66)
--- NOTE | 2024-08-23 14:50 | PC.NURSE ---
pt was complaining of left arm numbness will monitor.
--- NOTE | 2024-08-23 14:50 | PC.NURSE ---
Dr. Porter called states CT of head read is Negative for Acute stroke, Dr. Cook made aware.
--- NOTE | 2024-08-23 15:04 | ESCONSULT_ITS ---
Tele Neuro Consultation Consultation Date 08/23/24 Consultation Narrative [facility] TeleNeurology Consult Services Patient Name: MILLY CHERRY Date of : 1950 Identification Number: Date of Service: 08/23/2024 14:28:09 Diagnosis: ? R41.82 - Altered mental status, unspecified ? Left sided numbness ? R51.9 - Headache, unspecified Impression: ? 74 yo Male, Singaporean-speaking , With history of hypertension, hyperlipidemia, diabetes mellitus, status post renal transplantation, history of brain tumor resection (unknown details) who apparently was working in the [place] today, had not eaten or drank all day. He was apparently noted to be with altered mentation, complained of headache and complained of bilateral hand pain and possibly left-sided hand numbness. Bedside multi operation forming machine setter was utilized for history and examination. Patient was awake, disoriented to his age or the correct month, difficulty naming objects correctly, somewhat perseverative but speech was clear otherwise. He seems to have diminished sensation of his left side and neglects his left side on examination. It is unknown if he has any residual deficits from his prior brain tumor resection. NIHSS = 5. CT head reveals no bleed or acute abnormalities. Postoperative craniotomy on the right with chronic right frontal encephalomalacia. We will proceed with stat CTA of head and neck, and involve STACY if there is LVO. Evaluate for possibility of acute CVA, also rule out other contributing factors including rule out heat related illness, Rule out unwitnessed seizure with postictal deficit or other etiology. Our recommendations are outlined below. Recommendations: ? Stroke/Telemetry Floor ? Neuro Checks (Q2) ? Bedside Swallow Eval ? DVT Prophylaxis ? IV Fluids, Normal Saline ? Head of Bed 30 Degrees ? Euglycemia and Avoid Hyperthermia (PRN Acetaminophen) ? Initiate or continue Aspirin 81 MG daily ? Antihypertensives PRN if Blood pressure is greater than 220/120 or there is a concern for End organ damage/contraindications for permissive HTN. If blood pressure is greater than 220/120 give labetalol PO or IV or Vasotec IV with a goal of 15% reduction in BP during the first 24 hours. ? Stroke risk factor modification ? Stroke education. ? Suggest MRI brain To evaluate for possibility of CVA.Seizure precautions ? Suggest EEG, rule out seizure Sign Out: ? Discussed with Emergency Department Provider Metrics: Last Known Well: 08/23/2024 06:30:00 Dispatch Time: 08/23/2024 14:28:09 Arrival Time: 08/23/2024 14:25:00 Initial Response Time: 08/23/2024 14:32:20 Symptoms: Altered mental status, headache, left arm numbness. Initial patient interaction: 08/23/2024 14:38:25 NIHSS Assessment Completed: 08/23/2024 14:45:07 Patient is not a candidate for Thrombolytic. Thrombolytic Medical Decision: 08/23/2024 14:45:08 Patient was not deemed candidate for Thrombolytic because of following reasons: LKW outside 4.[address] Head: CT head unremarkable for acute infarction or hemorrhage per Radiology: No bleed or acute abnormalities, stable encephalomalacia right frontal lobe with adjacent craniotomy defect Primary Provider Notified of Diagnostic Impression and Management Plan on: 08/23/2024 14:59:35 History of Present Illness: Patient is a 74 year old Male. Patient was brought by EMS for symptoms of Altered mental status, headache, left arm numbness. 74 yo Male, Singaporean-speaking , With history of hypertension, hyperlipidemia, diabetes mellitus, , CADstatus post renal transplantation, history of brain tumor resection (unknown details) who apparently was working in the [place] today, had not eaten or drank all day. He was apparently noted to be with altered mentation, complained of headache and complained of bilateral hand pain and possibly left-sided hand numbness. Past Medical History: ? Hypertension ? Diabetes Mellitus ? Hyperlipidemia ? Coronary Artery Disease ? Migraine Headaches Other PMH: History of brain tumor resection-details unclearHistory of right foot osteomyelitis, history of PAD, history of CHF, depression, History of cellulitis, History of NSTEMI Medications: No Anticoagulant use Antiplatelet use: Yes Aspirin 81 mg daily, Plavix 95 mg daily Reviewed EMR for current medications Other Medications Pertinent To Assessment Include: Definitive medication list not available but per chart:Amlodipine, atorvastatin., Farxiga, glipizide, mycophenolate, tacrolimus, valsartan, Prednisone Allergies: Reviewed,NKDA Social History: Smoking: No Family History: There is no family history of premature cerebrovascular disease pertinent to this consultation ROS : 14 Points Review of Systems was performed and was negative except mentioned in HPI. Past Surgical History: There Is No Surgical History Contributory To Today?s Visit There Is Surgical History of: Kidney transplant patient , Craniotomy for brain tumor resection? , history of right partial foot amputation, Coronary stent Examination: BP(174/65), Pulse(67), Blood Glucose(243) 1A: Level of Consciousness - Alert; keenly responsive + 0 1B: Ask Month and Age - Could Not Answer Either Question Correctly + 2 1C: Blink Eyes & Squeeze Hands - Performs Both Tasks + 0 2: Test Horizontal Extraocular Movements - Normal + 0 3: Test Visual [place] - No Visual Loss + 0 4: Test Facial Palsy (Use Grimace if Obtunded) - Normal symmetry + 0 5A: Test Left Arm Motor Drift - No Drift for 10 Seconds + 0 5B: Test Right Arm Motor Drift - No Drift for 10 Seconds + 0 6A: Test Left Leg Motor Drift - No Drift for 5 Seconds + 0 6B: Test Right Leg Motor Drift - No Drift for 5 Seconds + 0 7: Test Limb Ataxia (FNF/Heel-Hawkins) - No Ataxia + 0 8: Test Sensation - Complete Loss: Cannot Sense Being Touched At All + 2 9: Test Language/Aphasia - Normal; No aphasia + 0 10: Test Dysarthria - Normal + 0 11: Test Extinction/Inattention - Visual/tactile/auditory/spatial/personal inattention + 1 NIHSS Score: 5 Pre-Morbid Modified Danitza Scale: Unable to assess Spoke with : Dr Cook This consult was conducted in real time using interactive audio and video technology. Patient was informed of the technology being used for this visit and agreed to proceed. Patient located in hospital and provider located at home/office setting. Patient is being evaluated for possible acute neurologic impairment and high probability of imminent or life-threatening deterioration. I spent total of 42 minutes providing care to this patient, including time for face to face visit via telemedicine, review of medical records, imaging studies and discussion of findings with providers, the patient and/or family. Dr Cheko Garcia [facility] For Inpatient follow-up with [facility] physician please call [facility] at . As we are not an outpatient service for any post hospital discharge needs please contact the hospital for assistance. If you have any questions for the [facility] physicians or need to reconsult for clinical or diagnostic changes please contact us via [facility] at .
[2024-08-23 15:09] LABS: INR 1.1 (0.9-1.3); Partial Thromboplastin Time 27.3 Seconds (22.0-36.0); Prothrombin Time 12.0 Seconds (9.0-12.2)
[2024-08-23 15:12] LABS: B-Type Natriuretic Peptide 99 pg/mL (0-100)
--- NOTE | 2024-08-23 15:47 | PC.NURSE ---
Pt transported from CT to room. Pt stated I feel much better now . Pt able to comprehend questions and follow commands. Denies any numbness or pain to left arm.
[2024-08-23 15:54] LABS: Alanine Aminotransferase 29 U/L (10-49); Albumin, Serum 4.3 gm/dL (3.4-4.8); Albumin/Globulin Ratio 2.0 (1.2-2.2); Alcohol, Blood Medical < 3.0 mg/dL (0-10.0); Alkaline Phosphatase 80 U/L (46-116); Anion Gap 10 (7-16); Aspartate Amino Transferase 23 U/L (0-34); BUN/Creatinine Ratio 12 Ratio (12-20); Bilirubin,Total 1.1 mg/dL (0.3-1.2); Blood Urea Nitrogen 17 mg/dL (9-23); Calcium 9.2 mg/dL (8.3-10.6); Calcium (Corrected) 9.2 mg/dL (8.5-10.1); Carbon Dioxide 22.2 mMol/L (20.0-31.0); Chloride 107 mMol/L (98-107); Creatine Kinase 141 U/L (34-171); Creatinine (Component) 1.4 mg/dL (0.6-1.3); Estimated Creatinine Clearance 43.0 mL/min (>60); Globulin 2.1 gm/dL (2.3-3.5); Glucose 282 mg/dL (74-106); Magnesium 1.2 mg/dL (1.6-2.6); Osmolality,Calculated 289 (275-295); Potassium 4.2 mMol/L (3.4-5.1); Sodium 139 mMol/L (136-145); Total Protein 6.4 gm/dL (5.7-8.2); Troponin I < 0.020 ng/mL (0.0-0.045); eGFR 53 See Note
[2024-08-23 15:58] LABS: Collection Type, Urine Clean Catch; RBC,Urine 0 /hpf (0-3); Squamous Epithelial Cell,Urine 0 /hpf (0-5); WBC,Urine 0 /hpf (0-5)
[2024-08-23] MEDS: ASPIRIN EC 81 MG TABEC PO (16:09)
[2024-08-23 16:11] LABS: Amphetamine/Methamp Scrn,U Negative (Negative); Barbiturate Screen,Urine Negative (Negative); Benzodiazepines Screen,Urine Negative (Negative); Benzoylecgonine Screen, Ur Negative (Negative); Fentanyl Screen,Urine Negative (Negative); Opiate Screen,Urine Negative (Negative); THC Screen,Urine Negative (Negative)
[2024-08-23] MEDS: SODIUM CHLORIDE 0.9% 1000 ML 1,000 ML 999 ML IV ×2 (16:11→16:18)
[2024-08-23] MEDS: Magnesium Sulfate 2 GM Ivpb 2 GM/50 ML BAG IV (16:18)
[2024-08-23 16:38] LABS: Bilirubin,Urine Negative (Negative); Blood,Urine Negative (Negative); Clarity,Urine Clear (Clear/Hazy); Color,Urine Colorless (Lt Yel-Yel); Glucose, Urine 4+ (Negative); Ketones,Urine Negative (Negative); Leukocyte Esterase,Urine Negative (Negative); Nitrite,Urine Negative (Negative); PH,Urine 6.5 (5.0-7.0); Protein,Urine Negative (Neg - Trace); Specific Gravity,Urine 1.018 (1.001-1.035); Urobilinogen,Urine Negative mg/dL (0.0-1.0)
--- NOTE | 2024-08-23 17:50 | PC.NURSE ---
Pt at this time stating that below lip area and hand feels like ants are crawling. Admitting DR's at bedside stated to assess fingerstick blood sugar checked resulted at 149. Dr stated okay for patient to eat food. Given alyx at this time.
--- NOTE | 2024-08-23 18:08 | ESHP_ITS ---
Documentation for date of: 08/23/24 [facility] History of Present Illness Chief complaint: Stroke r/o History of present illness: 74-year-old Kiswahili-speaking male with history of brain tumor resection (2005), renal transplant, hypertension, diabetes, and hyperlipidemia, presented from the field after experiencing neurologic symptoms while working outside in the heat. Around 1:20 PM, he developed gradual onset of visual disturbances followed by muscle spasms in his left arm and an inability to close his hand, describing it as ?scratching himself? involuntarily. He also reported a headache localized to the forehead, over the area of his prior craniotomy scar, and brief dizziness, during which he nearly fell but was caught by his son. At time of evaluation, he denied current numbness, nausea, chest pain, palpitations, shortness of breath, or fever/chills. He also denied any urinary changes or recent infections. He endorsed visual changes and speech difficulty earlier in the day but reported improvement by the time of assessment. No witnessed seizure activity or loss of consciousness reported. He brought propranolol, Farxiga, and amlodipine from home; full medication reconciliation is pending. ED Course: Patient was brought in by EMS as a stroke alert after coworkers noted acute mental status changes while he was working outside in the heat. Per EMS, he was initially AOx1, improved to AOx2 en route. Prehospital glucose was 243. In the ED, he reported visual changes, headache, and left arm symptoms including spasms and inability to close his hand. He also described dizziness and a near fall. On exam, he was alert, mildly disoriented, with left-sided sensory changes and some neglect. CT head showed no acute bleed but chronic right frontal encephalomalacia consistent with prior craniotomy. Tele-neurology was consulted and recommended further stroke workup. CTA head and neck was performed and was negative for LVO. Basic labs were unremarkable. Stroke workup initiated with MRI brain and EEG pending. Patient remained hemodynamically stable and was admitted to the stroke unit for monitoring and further evaluation. 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 Normal neck range of motion, Supple. Trachea midline. Respiratory: Lungs are clear to auscultation, Breath sounds are equal bilaterally with equal chest expansion. Cardiovascular: RRR, normal S1, S2, No murmurs. Neuro: * Mental Status: Alert and oriented x3 * Speech: Fluent without dysarthria or aphasia * Cranial Nerves: No facial asymmetry, EOMI, pupils equal/reactive, no neglect appreciated * Motor: 5/5 strength in all extremities * Sensation: Intact to light touch in all extremities * Cerebellar: Mgmdja-ys-zksc and wmcl-zo-sudp intact bilaterally Results: Labs 08/24/24 05:00 08/24/24 05:00 Labs: Short CBC 08/23/24 Range/Units 14:39 WBC 7.8 (3.8-10.6) Thou/mm3 Hgb 13.6 (13.5-16.0) g/dL Hct 42.9 (41.0-53.0) % Plt Count 152 D (140-440) Thou/mm3 BMP 08/23/24 14:39 Sodium 139 Potassium 4.2 Chloride 107 Carbon Dioxide 22.2 BUN 17 Creatinine 1.4 H Glucose 282 H Calcium 9.2 Cardiac Enzymes 08/23/24 Range/Units 14:39 Total Creatine Kinase 141 (34-171) U/L Troponin I < 0.020 (0.0-0.045) ng/mL Liver Function 08/23/24 Range/Units 14:39 Total Bilirubin 1.1 (0.3-1.2) mg/dL AST 23 (0-34) U/L ALT 29 (10-49) U/L Alkaline Phosphatase 80 (46-116) U/L Albumin 4.3 (3.4-4.8) gm/dL Urine 08/23/24 Range/Units 15:30 Urine Color Colorless A (Lt Yel-Yel) Urine Clarity Clear (Clear/Hazy) Urine pH 6.5 (5.0-7.0) Ur Specific Valier 1.018 (1.001-1.035) Urine Protein Negative (Neg - Trace) Urine Glucose (UA) 4+ A (Negative) ABG Interpretation ABG results: 08/23/24 14:39 VBG pH 7.38 VBG pCO2 39 VBG pO2 44 VBG Base Excess -2 Quality Measures Quality Measures stroke Suspected type of Stroke: Non Acute Last known well (date): 08/23/24 Last known well (time): 06:00 Tenecteplase given: Reason(s) Tenecteplase not given: Outside the time window not given Rehab services: PT evaluation ordered and Speech Language Pathology eval ordered VTE Prophylaxis: pharmaceutical Antithrombotic by day 2:: ordered Statin ordered: >75 y/o moderate or high intensity dose Anticoagulation ordered for A-fib or flutter (current or hx): ordered Advance care planning discussed with:: patient and spouse Medications Home Medications and Allergies Home Medications ?Medication ?Instructions ?Recorded ?Confirmed ?Type aspirin 81 mg chewable tablet 81 mg PO QDAY 01/28/19 0 08/23/24 History clopidogrel 75 mg tablet (Plavix) 75 mg PO QDAY 08/23/24 History mycophenolate sodium 180 mg 540 mg PO Q12H 01/28/19 History tablet,delayed release (Myfortic) tacrolimus 1 mg capsule, 3 mg PO BID 07/14/20 5 History immediate-release prednisone 1 mg tablet 5 mg PO QDAY 08/01/22 History dapagliflozin propanediol 10 mg 10 mg PO QAM 08/03/22 08/23/24 History tablet (Farxiga) insulin glargine 100 15 unit subcut BID 08/03/22 08/23/24 History unit-lixisenatide 33 mcg/mL subcutaneous pen (Soliqua 100/33) atorvastatin 20 mg tablet 20 mg PO HS 08/29/23 5 History vitamin B complex-vitamin C-folic 1 tab PO Q24H 08/23/24 History acid 0.8 mg tablet (Jailyn-Rayshawn) vitamin B complex-vitamin C-folic 1 tab PO Q24H 08/23/24 History acid 0.8 mg tablet (Jailyn-Rayshawn) amlodipine 10 mg tablet 10 mg PO QDAY 08/23/2408/23 History propranolol 10 mg tablet 20 mg PO BID 08/23/24 History Allergies Allergy/AdvReac Type Severity Reaction Status Date / Time No Known Allergies Allergy Verified 08/23/24 15:56 Visit Medications Acetaminophen (Acetaminophen 325 Mg Tablet) 650 mg PO Q6H PRN PRN Reason: Fever >101.5 Stop: 09/22/24 16:48 Acetaminophen (Acetaminophen 325 Mg Tablet) 650 mg PO Q6H PRN PRN Reason: PAIN SCALE 1-3 (mild Stop: 09/22/24 16:48 Aspirin (Aspirin Ec 81 Mg Tabec) 81 mg PO QDAY NOAM Stop: 09/22/24 16:59 Hydralazine HCl (Hydralazine Inj 20 Mg/Ml Vial) 10 mg IVP Q6HR PRN PRN Reason: If SBP >220 and DBP >120 Stop: 09/22/24 17:00 Magnesium Sulfate (Magnesium Sulfate Ivpb) 4 gm in 50 mls @ 12.5 mls/hr IV X1 ONE Stop: 08/23/24 21:59 Ondansetron HCl (Ondansetron Inj 2 Mg/Ml Inj 2 Ml) 4 mg IVP Q6H PRN; Protocol PRN Reason: NAUSEA OR VOMITING Stop: 09/22/24 16:48 Sennosides (Senna Tablet) 1 tab PO QDAY PRN; Protocol PRN Reason: constipation Stop: 09/22/24 16:48 Discontinued Medications Aspirin (Aspirin Ec 81 Mg Tabec) 81 mg PO X1 ONE Stop: 08/23/24 15:00 Last Admin: 08/23/24 16:09 Dose: 81 mg Sodium Chloride (Ns) 1,000 mls @ 999 mls/hr IV .Q1H1M ONE Stop: 08/23/24 15:28 Last Infusion: 08/23/24 17:24 Dose: Infused Sodium Chloride (Ns) 1,000 mls @ 999 mls/hr IV .Q1H1M ONE Stop: 08/23/24 15:29 Last Infusion: 08/23/24 17:25 Dose: Infused Magnesium Sulfate (Magnesium Sulfate Ivpb) 2 gm in 50 mls @ 25 mls/hr IV X1 ONE Stop: 08/23/24 17:56 Last Admin: 08/23/24 16:18 Dose: 25 mls/hr Sodium Chloride (Ns) 500 mls @ 999 mls/hr IV .Q31M ONE Stop: 08/23/24 17:19 Assessment & Plan Plan 74M with h/o brain tumor resection, HTN, DM2, renal transplant, presenting with visual disturbance, left arm spasm, headache, and transient AMS. Neuro exam normal on presentation. CTA head/neck negative, labs unremarkable. Concern for stroke vs seizure vs heat-related illness. -awaiting full med recs # Altered Mental Status / Stroke Alert Patient had gradual onset of visual disturbance and left arm spasms while working in heat; denies current numbness or speech changes. On exam: alert, fluent speech, no focal motor/sensory deficits, intact cerebellar function. CT head showed chronic encephalomalacia. CTA head/neck negative for LVO. Plan: * Monitor with Q2 neuro checks * MRI brain to evaluate for acute CVA (pending) * Maintain HOB >30? * Keep NPO until bedside swallow eval complete * EEG to r/o seizure * Permissive HTN unless SBP >220 or signs of end organ damage * Aspirin 81 mg daily * IVF with normal saline for possible heat-related contribution * Seizure precautions * Stroke education + risk factor modification * Echo ordered * PT and Speech Therapy consults ordered # Headache Described as frontal and over old resection site; may be related to prior surgery, heat, or current neurologic event. Plan: * Monitor symptoms * Acetaminophen PRN * Avoid NSAIDs given transplant history # Hypertension On propranolol and amlodipine at home. BP currently stable. Plan: * Hold antihypertensives unless SBP >220 or signs of end organ damage * Resume home meds if stable in 24h # Type 2 Diabetes Mellitus On Farxiga at home. No reported hypoglycemia. Plan: * Monitor glucose * Hold Farxiga inpatient * Maintain euglycemia * Sliding scale insulin started # Renal Transplant / ESRD history History of kidney transplant; baseline function unknown. Plan: * continue monitoring * Avoid nephrotoxic meds * Maintain good hydration * Await med rec to confirm immunosuppressants # Hyperlipidemia Patient not on statin per initial med rec. Plan: * Start atorvastatin 80 mg daily per stroke protocol # Health Maintenance * Disposition: Stroke/telemetry floor * Feeding: NPO until cleared by swallow eval * VTE Prophylaxis: SCDs ordered, consider chemical if cleared by neuro * GI Prophylaxis: PPI if needed * Diet: Cardiac diet started * Code Status: Limited (DNI) ----- Plan discussed with attending physician Dr. Johnna Anderson MD PGY-1 Internal Medicine Attending Provider Attestation/Addendum I attest that I was physically present for the evaluation, physical examination, lab and imaging review of the patient with the residents. I discussed the case with the residents and agree with the findings and plans of care as documented above.After examination of the patient and review of the clinical data I feel that this patient needs admission to the hospital for further treatment/evaluation. Patient is a 74 years old male with past medical history of brain tumor resection, renal transplant, hypertension, diabetes, hyperlipidemia who presented to the ED after having visual disturbance, altered mental status and headache. His symptoms started around 1:20 PM with visual disturbance and muscle spasm. As per the family at bedside, he started discussing himself involuntary. At the time of exam, patient stated he continues to have mild headache but denied any weakness, numbness, tingling or any other focal neurological deficits. He is alert and oriented and able to answer question and follow commands appropriately. CT head was done, which showed chronic right frontal encephalomalacia but did not show any acute finding. CTA head/neck was negative for LVO. Stroke alert was called, teleneurology was consulted, recommended further stroke workup with brain MRI and EEG. We will admit the patient for further workup of acute stroke, altered mental status and to rule out seizure episode. We will obtain brain MRI, in-house neurology consult, physical therapy, speech therapy, echocardiography. We will continue him on aspirin and statin. We will allow permissive hypertension. Started on insulin regimen for diabetes. We will obtain med rec to resume his medication for renal transplant. Gerard Oropeza MD
--- NOTE | 2024-08-23 18:14 | PC.NURSE ---
aspirin 1700 dose not given at this time due to receiving aspirin today at 1459
[2024-08-23] MEDS: SODIUM CHLORIDE 0.9% 500 ML 500 ML 999 ML IV (18:25)
[2024-08-23] MEDS: Magnesium Sulfate 4 GM Ivpb 4 GM/50 ML BAG IV (18:25)
--- NOTE | 2024-08-23 20:34 | PC.NURSE ---
called to give report no answer
[2024-08-23] MEDS: ATORVASTATIN CALCIUM 20 MG TABLET 80 MG PO (21:56)
[2024-08-23] MEDS: PROPRANOLOL 10 MG TABLET 20 MG PO (21:56)
[2024-08-24] VITALS: BP 147/46; PULSE 54; RESP 18; TEMP 36.6; O2SAT 93
[2024-08-24] MEDS: ACETAMINOPHEN 325 MG TABLET 650 MG PO (01:44)
[2024-08-24 04:00] VITALS: BP 128/64; PULSE 51; PULSE 59; RESP 16; TEMP 36.3; O2SAT 95
--- NOTE | 2024-08-24 04:07 | RESP.EEG ---
EEG has been recorded and is ready for MD interpretation
[2024-08-24 06:13] LABS: Basophils # (Auto) 0.0 Thou/mm3 (0.0-0.2); Basophils % (Auto) 1 % (0-2.5); Eosinophils # (Auto) 0.1 Thou/mm3 (0.0-0.5); Eosinophils % (Auto) 2 % (0-10); Hematocrit 45.9 % (41.0-53.0); Hemoglobin 14.0 g/dL (13.5-16.0); Immature Granulocytes Auto 0.04 Thou/mm3 (0.00-0.00); Lymphocytes # (Auto) 1.3 Thou/mm3 (1.0-4.8); Lymphocytes % (Auto) 21 % (10-50); Mean Corpuscular HGB Conc 30.5 g/dl (31.0-37.0); Mean Corpuscular Hemoglobin 24.7 pg (25.0-35.0); Mean Corpuscular Volume 81 fL (80-100); Monocytes # (Auto) 0.8 Thou/mm3 (0.0-0.8); Monocytes % (Auto) 12 % (0-12); Neutrophils # (Auto) 4.0 Thou/mm3 (1.8-7.7); Neutrophils % (Auto) 64 % (37-80); Nucleated Red Blood Cell # 0.00 Thou/mm3 (0.00-0.00); Nucleated Red Blood Cell % 0 /100 WBC (0); Platelet Count 170 Thou/mm3 (140-440); RDW Standard Deviation 45.4 fL (35.1-43.9); Red Blood Count 5.66 Miln/mm3 (4.50-5.90); White Blood Count 6.3 Thou/mm3 (3.8-10.6)
[2024-08-24 06:40] LABS: Alanine Aminotransferase 26 U/L (10-49); Albumin, Serum 4.2 gm/dL (3.4-4.8); Albumin/Globulin Ratio 2.0 (1.2-2.2); Alkaline Phosphatase 63 U/L (46-116); Anion Gap 12 (7-16); Aspartate Amino Transferase 21 U/L (0-34); BUN/Creatinine Ratio 14 Ratio (12-20); Bilirubin,Total 1.4 mg/dL (0.3-1.2); Blood Urea Nitrogen 14 mg/dL (9-23); Calcium 9.0 mg/dL (8.3-10.6); Calcium (Corrected) 9.0 mg/dL (8.5-10.1); Carbon Dioxide 21.8 mMol/L (20.0-31.0); Chloride 110 mMol/L (98-107); Creatinine (Component) 1.0 mg/dL (0.6-1.3); Estimated Creatinine Clearance 60.3 mL/min (>60); Globulin 2.1 gm/dL (2.3-3.5); Glucose 94 mg/dL (74-106); Magnesium 2.0 mg/dL (1.6-2.6); Osmolality,Calculated 287 (275-295); Phosphorous 2.4 mg/dL (2.4-5.1); Potassium 3.7 mMol/L (3.4-5.1); Sodium 144 mMol/L (136-145); Total Protein 6.3 gm/dL (5.7-8.2); eGFR > 60 See Note
[2024-08-24 08:00] VITALS: BP 160/64; PULSE 58; PULSE 61; RESP 18; TEMP 36.4; O2SAT 95
[2024-08-24 08:41] VITALS: BP 160/64; PULSE 95
[2024-08-24] MEDS: PROPRANOLOL 10 MG TABLET 20 MG PO (08:41)
[2024-08-24] MEDS: ASPIRIN EC 81 MG TABEC PO (08:41)
--- NOTE | 2024-08-24 11:41 | PC.PT ---
PT eval only. Patient is I with transfers and ambulation without AD.
[2024-08-24] MEDS: INSULIN LISPRO (AdmeLOG) 1 UNIT/0.01 ML UNIT SC (11:54)
[2024-08-24 12:00] VITALS: BP 120/66; PULSE 59; PULSE 63; RESP 18; TEMP 36.3; O2SAT 95
--- NOTE | 2024-08-24 13:48 | PD.RESEVENT ---
Documentation for date of: 08/24/24 Event Note Event Note: pt had code blue at 135, family at bedside, and son, who wanted to change the code status to full code and proceed with intubation.
--- NOTE | 2024-08-24 13:50 | PC.SS ---
SS was present during CODE BLUE, PERSONN[employer] SECURITY SPECIALIST Ros assisted. Suzi at bs, SS provided support. SS contacted pt son Isac to come to bedside. Support provided. Seneca contacted for prayer support. SS will remain available for any additional needs support.
--- NOTE | 2024-08-24 14:14 | PD.RESCONSUL ---
HPI Data of Consult Requesting Physician: Gerard Oropeza MD Admitting Provider: Jonas Anderson, RESIDENT Attending Provider: Gerard Oropeza MD Primary Care Provider: Physician No Primary/Family Consult Narrative History of present illness: Mr. Westbrook is a 74-year-old Cymraes-speaking male with PMHx of brain tumor resection (2005), renal transplant, hypertension, diabetes, and hyperlipidemia, presented from the field after experiencing neurologic symptoms while working outside in the heat. Around 1:20 PM, he developed gradual onset of visual disturbances followed by muscle spasms in his left arm and an inability to close his hand, describing it as ?scratching himself? involuntarily. He also reported a headache localized to the forehead, over the area of his prior craniotomy scar, and brief dizziness, during which he nearly fell but was caught by his son. At time of evaluation, he denied current numbness, nausea, chest pain, palpitations, shortness of breath, or fever/chills. He also denied any urinary changes or recent infections. He endorsed visual changes and speech difficulty earlier in the day but reported improvement by the time of assessment. No witnessed seizure activity or loss of consciousness reported. He brought propranolol, Dapagliflozin (Farxiga), and amlodipine from home. ED Course: Patient was brought in by EMS as a stroke alert after coworkers noted acute mental status changes while he was working outside in the heat. Per EMS, he was initially AOx1, improved to AOx2 en route. Prehospital glucose was 243. In the ED, he reported visual changes, headache, and left arm symptoms including spasms and inability to close his hand. He also described dizziness and a near fall. On exam, he was alert, mildly disoriented, with left-sided sensory changes and some neglect. CT head showed no acute bleed but chronic right frontal encephalomalacia consistent with prior craniotomy. Tele-neurology was consulted and recommended further stroke workup. CTA head and neck was performed and was negative for LVO. Basic labs were unremarkable. Stroke workup initiated with MRI brain and EEG pending. Patient remained hemodynamically stable and was admitted to the stroke unit for monitoring and further evaluation. 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; was working outside in the heat at the time of symptom onset Smoking: Never smoker Alcohol: Denies alcohol use Illicit Drugs: Denies Living situation: Lives with family, son was present at time of episode cc:: cc: Gerard Oropeza MD Review of Systems Review of Systems Narrative Review of Systems: 14 point ROS negative other than HPI Exam Vital Signs Temp Pulse Resp BP Pulse Ox O2 Del Method 97.3 F 59 L 18 120/66 95 Room Air 08/24/24 12:00 08/24/24 12:00 08/24/24 12:00 08/24/24 12:00 08/24/24 12:00 08/24/24 12:00 Narrative Exam General: No acute distress, well nourished Eye: PERRL, EOMI, normal conjunctiva, no scleral icterus HENT: Normocephalic, atraumatic, hearing intact to conversation at normal volume, moist oral mucosa Neck: Supple, non-tender, no JVD, no lymphadenopathy Lungs: Non-labored respirations, symmetric chest rise Heart: Peripheral pulses intact bilaterally Abdomen: Soft, non-tender, non-distended Musculoskeletal: Normal range of motion and strength Skin: Skin is warm, dry, no rashes or lesions. Psychiatric: Cooperative, appropriate mood and affect Neurologic: Mental status: Orientation: Oriented to person, place, time, and situation Communication: Patient is cooperative and can follow simple instructions Language: Speech fluent, normal rate and volume, comprehension intact Cranial nerves: CN II: Visual king intact CN III: Pupils equal, round, and reactive to light CN III, IV, : No gaze deviation, no nystagmus Horizontal pursuit: intact Vertical pursuit: intact Ptosis: none CN V: Facial sensation to light touch intact bilaterally at the forehead, cheeks, and jaw line CN VII: Face symmetric, no facial droop appreciated CN VIII: Able to hear and respond to conversation at normal volume, intact to finger rub CN IX, X: Palate elevation symmetric, uvula midline CN XI: Head turn and shoulder shrug strong, symmetric bilaterally CN XII: Normal tongue protrusion without deviation, no fasciculations Motor: Normal bulk and tone No atrophy No abnormal movements or fasciculations Muscle strength: Shoulder abduction: R 5/5 L 5/5 Elbow flexion: R 5/5 L 5/5 Elbow extension: R 5/5 L 5/5 Hip flexion: R 5/5 L 5/5 Hip extension: R 5/5 L 5/5 Knee flexion: R 5/5 L 5/5 Knee extension: R 5/5 L 5/5 Sensory: RUE: Light touch intact LUE: Light touch intact RLE: Light touch intact LLE: Light touch intact Reflexes: Biceps (C5-6): R 2+ L 2+ Brachioradialis (C5-6): R 2+ L 2+ Triceps (C7-8): R 2+ L 2+ Patellae (L3-4): R 2+ L 2+ Achilles (S1-2):R 2+ L 2+ No clonus Plantar reflex downgoing bilaterally Cerebellum: RUE: No dysmetria (finger to nose), no dysdiadochokinesia (rapid alternating movements) LUE: No dysmetria (finger to nose), no dysdiadochokinesia (rapid alternating movements) RLE: No dysmetria (heel to kate) LLE: No dysmetria (heel to kaet) Romberg: negative Gait: Normal stance, stride length, and arm swing Normal pivot turn without instability Results Labs 08/24/24 05:00 08/24/24 05:00 Labs: Short CBC 08/23/24 08/24/24 Range/Units 14:39 05:00 WBC 7.8 6.3 (3.8-10.6) Thou/mm3 Hgb 13.6 14.0 (13.5-16.0) g/dL Hct 42.9 45.9 (41.0-53.0) % Plt Count 152 D 170 (140-440) Thou/mm3 BMP 08/23/24 08/24/24 14:39 05:00 Sodium 139 144 Potassium 4.2 3.7 D Chloride 107 110 H Carbon Dioxide 22.2 21.8 BUN 17 14 Creatinine 1.4 H 1.0 Glucose 282 H 94 D Calcium 9.2 9.0 Cardiac Enzymes 08/23/24 Range/Units 14:39 Total Creatine Kinase 141 (34-171) U/L Troponin I < 0.020 (0.0-0.045) ng/mL Liver Function 08/23/24 08/24/24 Range/Units 14:39 05:00 Total Bilirubin 1.1 1.4 H (0.3-1.2) mg/dL AST 23 21 (0-34) U/L ALT 29 26 (10-49) U/L Alkaline Phosphatase 80 63 D (46-116) U/L Albumin 4.3 4.2 (3.4-4.8) gm/dL Urine 08/23/24 Range/Units 15:30 Urine Color Colorless A (Lt Yel-Yel) Urine Clarity Clear (Clear/Hazy) Urine pH 6.5 (5.0-7.0) Ur Specific [place] 1.018 (1.001-1.035) Urine Protein Negative (Neg - Trace) Urine Glucose (UA) 4+ A (Negative) ABG Interpretation ABG results: 08/23/24 14:39 VBG pH 7.38 VBG pCO2 39 VBG pO2 44 VBG Base Excess -2 Quality Measures Quality Measures stroke Suspected type of Stroke: Non Acute Last known well (date): 08/23/24 Last known well (time): 06:00 Tenecteplase given: Reason(s) Tenecteplase not given: Outside the time window not given Medications Home Medications and Allergies Home Medications ?Medication ?Instructions ?Recorded ?Confirmed ?Type aspirin 81 mg chewable tablet 81 mg PO QDAY 01/28/19 08/23/24 History clopidogrel 75 mg tablet (Plavix) 75 mg PO QDAY 01/28/19 08/23/24 History mycophenolate sodium 180 mg 540 mg PO Q12H 01/28/19 08/23/24 History tablet,delayed release (Myfortic) tacrolimus 1 mg capsule, 3 mg PO BID 07/14/20 08/23/24 History immediate-release prednisone 1 mg tablet 5 mg PO QDAY 08/01/22 08/23/24 History dapagliflozin propanediol 10 mg 10 mg PO QAM 08/03/22 08/23/24 History tablet (Farxiga) insulin glargine 100 15 unit subcut BID 08/03/22 08/23/24 History unit-lixisenatide 33 mcg/mL subcutaneous pen (Soliqua 100/33) atorvastatin 20 mg tablet 20 mg PO HS 08/29/23 08/23/24 History vitamin B complex-vitamin C-folic 1 tab PO Q24H 08/29/23 08/23/24 History acid 0.8 mg tablet (Jailyn-Rayshawn) vitamin B complex-vitamin C-folic 1 tab PO Q24H 08/29/23 08/23/24 History acid 0.8 mg tablet (Jailyn-Rayshawn) amlodipine 10 mg tablet 10 mg PO QDAY 08/23/24 08/23/24 History propranolol 10 mg tablet 20 mg PO BID 08/23/24 08/23/24 History Allergies Allergy/AdvReac Type Severity Reaction Status Date / Time No Known Allergies Allergy Verified 08/23/24 15:56 Visit Medications Acetaminophen (Acetaminophen 325 Mg Tablet) 650 mg PO Q6H PRN PRN Reason: Fever >101.5 Stop: 09/22/24 16:48 Acetaminophen (Acetaminophen 325 Mg Tablet) 650 mg PO Q6H PRN PRN Reason: PAIN SCALE 1-3 (mild Stop: 09/22/24 16:48 Last Admin: 08/24/24 01:44 Dose: 650 mg Aspirin (Aspirin Ec 81 Mg Tabec) 81 mg PO QDAY [facility] Stop: 09/22/24 16:59 Last Admin: 08/24/24 08:41 Dose: 81 mg Atorvastatin Calcium (Atorvastatin Calcium 20 Mg Tablet) 80 mg PO HS [facility] Stop: 09/22/24 20:59 Last Admin: 08/23/24 21:56 Dose: [address] (180 Mg) 0 ea PO BID [facility] Stop: 09/23/24 10:29 Last Admin: 08/24/24 11:10 Dose: Not Given Dextrose (Dextrose 50%-Water Inj 50 Ml Syringe) 25 ml IV Q15MIN PRN PRN Reason: BG 50-70 responsive npo pt Stop: 09/22/24 18:20 Dextrose (Dextrose 50%-Water Inj 50 Ml Syringe) 50 ml IV Q15MIN PRN PRN Reason: BG <50 OR BG <70 & pt unresponsive Stop: 09/22/24 18:20 Glucagon (Glucagon Inj 1 Mg Vial) 1 mg IM Q15MIN PRN PRN Reason: BG <70, and no IV access Hydralazine HCl (Hydralazine Inj 20 Mg/Ml Vial) 10 mg IVP Q6HR PRN PRN Reason: If SBP >220 and DBP >120 Stop: 09/22/24 17:00 Insulin Human Lispro (Insulin Lispro (Admelog) 1 Unit/0.01 Ml Unit) 0 unit SC [facility]; Protocol Stop: 09/23/24 07:29 Last Admin: 08/24/24 11:54 Dose: 1 unit Lorazepam (Lorazepam 2 Mg/Ml Vial) 2 mg IVP Q30MIN PRN PRN Reason: Seizure Stop: 08/28/24 18:21 Ondansetron HCl (Ondansetron Inj 2 Mg/Ml Inj 2 Ml) 4 mg IVP Q6H PRN; Protocol PRN Reason: NAUSEA OR VOMITING Stop: 09/22/24 16:48 Prednisone (Prednisone 5 Mg Tablet) 5 mg PO QDAY [facility] Stop: 09/23/24 08:59 Last Admin: 08/24/24 08:41 Dose: Not Given Propranolol HCl (Propranolol 10 Mg Tablet) 20 mg PO BID [facility] Stop: 09/22/24 20:59 Last Admin: 08/24/24 08:41 Dose: 20 mg Sennosides (Senna Tablet) 1 tab PO QDAY PRN; Protocol PRN Reason: constipation Stop: 09/22/24 16:48 Tacrolimus (Tacrolimus 1 Mg Capsule (Non-Formulary)) 3 mg PO BID [facility] Stop: 09/23/24 08:59 Last Admin: 08/24/24 08:46 Dose: Not Given Discontinued Medications Aspirin (Aspirin Ec 81 Mg Tabec) 81 mg PO X1 ONE Stop: 08/23/24 15:00 Last Admin: 08/23/24 16:09 Dose: 81 mg Sodium Chloride (Ns) 1,000 mls @ 999 mls/hr IV .Q1H1M ONE Stop: 08/23/24 15:28 Last Infusion: 08/23/24 17:24 Dose: Infused Sodium Chloride (Ns) 1,000 mls @ 999 mls/hr IV .Q1H1M ONE Stop: 08/23/24 15:29 Last Infusion: 08/23/24 17:25 Dose: Infused Magnesium Sulfate (Magnesium Sulfate Ivpb) 2 gm in 50 mls @ 25 mls/hr IV X1 ONE Stop: 08/23/24 17:56 Last Infusion: 08/23/24 18:10 Dose: Infused Magnesium Sulfate (Magnesium Sulfate Ivpb) 4 gm in 50 mls @ 12.5 mls/hr IV X1 ONE Stop: 08/23/24 21:59 Last Admin: 08/23/24 18:25 Dose: 12.5 mls/hr Sodium Chloride (Ns) 500 mls @ 999 mls/hr IV .Q31M ONE Stop: 08/23/24 17:19 Last Infusion: 08/23/24 18:44 Dose: Infused Lorazepam (Lorazepam 0.5 Mg Tablet) 0.5 mg PO X1 ONE Stop: 08/24/24 07:48 Lorazepam (Lorazepam 2 Mg/Ml Vial) 1 mg IVP X1 ONE Stop: 08/24/24 10:12 Last Admin: 08/24/24 13:31 Dose: 1 mg Non-Formulary Medication (Mycophenolate Sodium [Myfortic]) 540 mg PO Q12H [facility] Stop: 09/23/24 08:14 Assessment & Plan Plan # Altered Mental Status / Stroke Alert Patient had gradual onset of visual disturbance and left arm spasms while working in heat; denies current numbness or speech changes. On exam: alert, fluent speech, no focal motor/sensory deficits, intact cerebellar function. CT head showed chronic encephalomalacia. CTA head/neck negative for LVO. Plan: Monitor with Q2 neuro checks MRI brain to evaluate for acute CVA (pending) Maintain HOB >30? Keep NPO until bedside swallow eval complete EEG to r/o seizure Permissive HTN unless SBP >220 or signs of end organ damage Aspirin 81 mg daily IVF with normal saline for possible heat-related contribution Seizure precautions Stroke education + risk factor modification Echo ordered PT and Speech Therapy consults ordered # Headache Described as frontal and over old resection site; may be related to prior surgery, heat, or current neurologic event. Plan: Monitor symptoms Acetaminophen PRN Avoid NSAIDs given transplant history # Hypertension On propranolol and amlodipine at home. BP currently stable. Plan: Hold antihypertensives unless SBP >220 or signs of end organ damage Resume home meds if stable in 24h # Type 2 Diabetes Mellitus On Farxiga at home. No reported hypoglycemia. Plan: Monitor glucose Hold [facility] inpatient Maintain euglycemia Sliding scale insulin started # Renal Transplant / ESRD history History of kidney transplant; baseline function unknown. Plan: continue monitoring Avoid nephrotoxic meds Maintain good hydration Await med rec to confirm immunosuppressants # Hyperlipidemia Patient not on statin per initial med rec. Plan: Start atorvastatin 80 mg daily per stroke protocol # Health Maintenance Disposition: Stroke/telemetry floor Feeding: NPO until cleared by swallow eval VTE Prophylaxis: SCDs ordered, consider chemical if cleared by neuro GI Prophylaxis: PPI if needed Diet: Cardiac diet started Code Status: Limited (DNI)
--- NOTE | 2024-08-24 14:39 | PC.NURSE ---
Ear Machine Operator called at 1435.
--- NOTE | 2024-08-24 14:41 | DES_ITS ---
Documentation for date of: 08/24/24 Pronouncement Note Date and Time of Date of : 08/24/24 Time of : 14:06 PCOD Preliminary cause of : Cardiopulmonary arrest Summary Additional details: Patient was found unresponsive, and a Code Blue was initiated at 13:36. ACLS protocol was followed, including 8 rounds of epinephrine, 1 dose of amiodarone, and 2 defibrillation shock. Chest compressions were continuous except during pulse checks and defibrillation. No return of spontaneous circulation (ROSC) was achieved. At 14:06, patient was pronounced . No palpable pulse, No spontaneous respirations, No heart sounds and Pupils fixed and dilated Attending Dr. Oropeza was notified. Family was present at bedside during and after the resuscitation and condolences were offered. ----- Plan discussed with attending physician Dr. Oropeza and senior resident Dr. Emerald Anderson MD PGY-1 Internal Medicine Additional Data Confirmation of : no pulse, no respirations, no heart sounds and pupils fixed and dilated Family: at bedside Additional persons at bedside: certified diabetes educator and social human services assistants Attending/PCP notified?: Yes Attending physician: Gerard Oropeza MD Was code activated?: Yes
--- NOTE | 2024-08-24 14:57 | DES_ITS ---
<Statement entered by Gerard Oropeza MD - 08/25/24 16:09> I attest that I was physically present for the evaluation, physical examination, lab and imaging review of the patient with the residents. I discussed the case with the residents and agree with the findings and plans of care as documented below. Gerard Oropeza MD Documentation for date of: 08/24/24 Summary Date and Time Date of admission: 08/23/24 16:49 Date of : 08/24/24 Time of : 14:06 Summary Details: The patient was a 74-year-old Japanese-speaking male with a history of hypertension, type 2 diabetes mellitus, hyperlipidemia, renal transplant (on immunosuppressants), and prior brain tumor resection in 2005, who presented on August 23, 2024 as a stroke alert. Per EMS and family, the patient had been working outdoors in the heat when he developed gradual onset of visual disturbances, left arm spasms, and an inability to close his hand. He also reported frontal headache (localized to the site of his prior craniotomy scar) and dizziness that resulted in a near fall (caught by his son). He denied chest pain, palpitations, fever, chills, or numbness. Stroke alert was activated in the ED. Initial evaluation in the emergency department showed the patient to be alert but mildly disoriented, with no focal motor or cranial nerve deficits on physical exam. A non-contrast CT head showed no acute bleed, but did reveal chronic right frontal encephalomalacia consistent with prior craniotomy. CTA head and neck was performed and showed no large vessel occlusion. Tele-neurology was consulted and recommended further evaluation with MRI and EEG. The patient was admitted to the stroke/telemetry unit. He remained clinically stable, continued to deny any recurrence of initial symptoms, and resumed his home immunosuppressants (tacrolimus, mycophenolate, prednisone). A bedside swallow evaluation was passed. Cardiac workup was initiated with an echocardiogram ordered. A cardiac diet, atorvastatin, SCDs, and sliding scale insulin were started. On the morning of August 24, the patient was awake, alert, and denied any headache, visual symptoms, or neurological complaints. He was noted to be claustrophobic in anticipation of his MRI, so Ativan 1 mg was ordered to be given priot MRI for anxiety. Utox returned negative, and bowel movement was documented. Later that day, at 13:36, a Code Blue was called for unresponsiveness. ACLS protocol was initiated. The patient received: * 8 rounds of epinephrine * 1 dose of amiodarone * 2 defibrillation shock * Chest compressions were continuous, interrupted only for rhythm checks and defibrillation. Despite extensive resuscitative efforts, no ROSC was achieved. Time of was pronounced at 14:06. Family was present at bedside during and after the r esuscitation. Family notified and present. Awaiting further instructions from the family regarding disposition of remains ----- Plan discussed with attending physician Dr. Oropeza and senior resident Dr. Emerald Anderson MD PGY-1 Internal Medicine Additional Data Confirmation of as documented by pronouncing clinician: no pulse Family: at bedside Additional persons at bedside: water resources engineer, social welfare clerk and customer sales advisor Attending/PCP notified?: Yes Attending physician: Gerard Oropeza MD Was code activated?: Yes sock examiner notified?: Yes Visit Providers Provider Primary care physician: Physician No Primary/Family Admitting clinician: Jonas Anderson Attending physician on admission: Gerard Oropeza Consults: 08/23/24 14:28 Consult to Neurology / Tele-Neurology Routine Comment: Consulting Provider: [facility] 08/23/24 18:17 Referral Physical Therapy Routine Comment: Physician Instructions: Referral Speech Therapy Routine Comment: 08/23/24 18:18 Consult to Neurology / Tele-Neurology Routine Comment: CVA r/o vs Seizure Consulting Provider: Kris Ruiz Discharge Plan Plan Patient Disposition: Prescriptions/Referrals Referrals: No Primary/Family,Physician [Primary Care Provider] - Patient/Caregiver Discharge Instructions Print Language: Japanese
--- NOTE | 2024-08-24 16:59 | PC.NURSE ---
Around 1330 I walked into the patients room to inform the patient that pt will be going to MRI soon. present at bedside. Pt was awake, alert and talking to the . I informed the patient that MRI is ready for him so I will go get the medication for him. I walked out to get pts med and return to pts room pt looked at me and touched his head and fainted to one side. Rapid response time was called at 1334 and when I checked pts pulse unable to palpate zachariah hurst was called at 1335.
== END 2024-08-24 14:06 | disposition expired | DRG 70 ==
LOC: SERX 17:25 → SERHOLD 17:40 → S3NX 08-24 06:25
PROVIDERS: Emergency Provider Emergency Medicine; Visit Provider Student in an Organized Health Care Education/Training Program
DX: G93.89 Other specified disorders of brain (principal); N18.6 End stage renal disease; I12.0 Hypertensive chronic kidney disease with stage 5 chronic kidney disease or end stage renal disease; D84.821 Immunodeficiency due to drugs; Z94.0 Kidney transplant status; E78.5 Hyperlipidemia, unspecified; E11.22 Type 2 diabetes mellitus with diabetic chronic kidney disease; I46.9 Cardiac arrest, cause unspecified; Z79.60 Long term (current) use of unspecified immunomodulators and immunosuppressants; Z86.011 Personal history of benign neoplasm of the brain; F40.240 Claustrophobia; Z79.899 Other long term (current) drug therapy
CPT/HCPCS: 36415; 36600; 70450; 70496; 70498; 80053; 80307; 80320; 81001; 82550; 82803; 83605; 83735; 83880; 84100; 84443; 84484; 85025; 85610; 85730; 92610; 93225; 95816; 96365; 96366; 97162; A4649; J1815; J2060; J3475; J7030; J7999; Q9967; A9270; G0480